=== PATIENT | female | born 1985 | race Caucasian/White ===

== ENCOUNTER → 2017-04-18 20:26 | Outpatient (CLI) | payer OTHER, SELFPAY ==
[2017-04-21 14:38] LABS: HPV Reflexed? NOT INDICATED
== END ==
PROVIDERS: Visit Provider Obstetrics & Gynecology
DX: Z12.4 Encounter for screening for malignant neoplasm of cervix (principal)
CPT/HCPCS: 88175; G0145

== ENCOUNTER → 2017-05-18 15:55 | Outpatient (CLI) | payer OTHER, SELFPAY ==
--- NOTE | 2017-05-18 | IMM_PTH ---
PATIENT: DEEPTHI PHOENIX LOC: [facility] U#:[id number] AGE/SX: 39/F ROOM: RE05/18/[address]: Dr. Venus Avery MD : 1985 BED: DIS: SPEC #: [id number] RECD: 05/22/17 10:47 STATUS: ROXANNE REHodan #: [id number] KIKA: 05/18/17 00:[address]: Venus Avery DEPT: IMMUNOHISTOCHEMISTRY RECD BY: Hayley Nj ENTERED: 05/22/17 10:48 SP TYPE: IMMUNO OTHR DR: Juanita Garcia, SUPERVISOR PURIFICATION-C Tissues: A - Uterine cervix, NOS B - Endocervical Procedures: p16 (initial) KI-67 (add) PHYSICIAN & [place] [id number] SPECIMEN INFORMATION: Tissue Source: A ? Cervical biopsy, B - ECC Clinical Info: LGSIL, mild dysplasia Specimen Number: [id number] A & B CPT code: 36822 x2, 90024 x2 METHODOLOGY: Deparaffinized sections of prefer/formalin-fixed tissue or PAP/DQ stained slides are incubated with monoclonal/polyclonal antibodies/oligonucleotide probes. Localization is made via biotin free immunoperoxidase method. Appropriate controls are performed and reacted as expected. Results on target cell population are indicated in the following table: RESULTS: ANTIBODY / CLONE RESULT Block A P16 (E6H4) positive, focal, patchy Ki-67 (30-9) positive, low Block B P16 (E6H4) positive, rare cells Ki-67 (30-9) positive, rare cells These tests were developed and their performance characteristics determined by [facility]. They may not have been cleared or approved by the U.S. Food and Drug Administration. The FDA has determined that such clearance or approval is not necessary. INTERPRETATION: A. Cervical biopsy: Focal HPV change noted. B. ECC: Focal HPV change suspected. AM:edilma 05/23/17
--- NOTE | 2017-05-18 11:00 | CER_PTH ---
PATIENT: DEEPTHI PHOENIX LOC: [facility] U#:[id number] AGE/SX: 39/F ROOM: RE05/18/[address]: Dr. Venus Avery MD : 1985 BED: DIS: SPEC #: [id number] RECD: 05/18/17 15:32 STATUS: ROXANNE SEMAJ #: [id number] KIKA: 05/18/17 11:[address]: Venus Avery DEPT: SURGICAL PATHOLOGY RECD BY: Edward Aldridge ENTERED: 05/19/17 09:38 SP TYPE: CERV OTHR DR: Juanita Garcia, INJECTOR ASSEMBLER-C Tissues: A - Uterine cervix, NOS B - Endocervical Procedures: Surgery Specimen Level IV HEADER OPERATION: Colposcopy PRE-OP DIAGNOSIS: LMP 2, LSGIL pap POST-OP DIAGNOSIS: Mild dysplasia TISSUE SUBMITTED: A. Cervical biopsy, B. ECC MICROSCOPIC DIAGNOSIS A. Cervix, biopsy: Focal HPV change noted. Squamous metaplasia and mild chronic inflammation. B. Endocervix, curettings: Squamous metaplasia and mild chronic inflammation. Focal HPV change suspected. AM:edilma 05/22/17 COMMENT A & B. Results from immunohistochemistry ([id number]) for surrogate HPV marker (p16) will be reported separately. Case has been reviewed in consultation with Dr. Bernstein who concurs with the above diagnosis. IDC:ZORAN MICROSCOPIC DESCRIPTION Slides are reviewed. GROSS DESCRIPTION A - Received in fixative is one container labeled with the patient's name and designated cervix. The specimen consists of multiple irregular fragments of light wiggins soft tissue that in aggregate measure 0.5 x 0.5 x 0.1 cm. The specimen is totally submitted in one cassette. B - Received in fixative is one container labeled with the patient's name and designated ECC. The specimen consists of multiple fragments of hemorrhagic mucoid tissue that in aggregate measure 2 x 2 x 0.2 cm. The specimen is totally submitted in one cassette. / ZORAN:edilma 05/19/17 TC:3 CPT: 93494 x2
== END ==
PROVIDERS: Family Provider Nurse Practitioner Family; PCP Nurse Practitioner Family; Visit Provider Obstetrics & Gynecology
DX: N87.0 Mild cervical dysplasia (principal)
CPT/HCPCS: 88305; 88341; 88342

== ENCOUNTER → 2017-11-22 14:39 | Outpatient (CLI) | payer OTHER, SELFPAY ==
[2017-11-29 12:14] LABS: HPV Reflexed? NOT INDICATED
== END ==
PROVIDERS: Visit Provider Obstetrics & Gynecology
DX: R87.612 Low grade squamous intraepithelial lesion on cytologic smear of cervix (LGSIL) (principal)
CPT/HCPCS: 88175; G0145

== ENCOUNTER 2018-02-13 11:30 | Outpatient (RCR) | payer OTHER, SELFPAY ==
--- NOTE | 2018-01-23 17:07 | HP.PTEVAL ---
Patient's Visit Information DEEPTHI PHOENIX is a 32 year old F referred to Physical Therapy by Madan Cardozo MD with a diagnosis of R shoulder pain. Date of Evaluation: 01/23/18 Physical Therapist: Aureliano Redman PT, - Visit Plan Frequency: 2-3x /Week Duration: 4 Weeks Plan: R shoulder strengthening (rot cuff), scap stab ex's, UBE, and HEP - Subjective Subjective: Pt reports she has had R shoulder pain for 4 weeks. Pt reports her pain had an insidious onset in nature. Pt is R halnd dom. pt reports no PMHx. NO T or N in R UE. Pt reports she has increased pain reaching across her body. Pt also reports lifting her arm while she is supine for tricep ext increqses her pain. Pt reports she has tried cp/mh/and advil, and nothing helps to decrease her pain. No Dx tests at this time. 1-2/10 at rest, 8/10 when she was exercising tricp extensions. - Pain R shoulder Pain Intensity (Out of 10): 2 Pain Intensity Range: 8 - Objective Neuro: B UE sensation is WNL to light touch. B bicepital reflex= 2/3. ROM: L shoulder flex= 165, abd= 160, ER= 60, IR WNL; R shoulder flex= 150, abd= 130, ER= 65, IR WNL. MMT: R shoulder is grossly 4-/5 and painful with all motions. L shoulder 5/5 throughout. Palpation: Pain on the posterior lateral aspect of R shoulder. No obvious deformity. Special tests: pos salazar faiht sign - Goals Goal 1:: Decrease R shoulder pain x 50% to aid with sleep Goal Time Frame: 2-4 Weeks Goal 2:: Increase R shoulder strength x 1 grade to aid with work requirements Goal Time Frame: 2-4 Weeks Goal 3:: Increawse R shoulder flex and abd x 30 degrees to aid with overhead lifting Goal Time Frame: 2-4 Weeks Goal 4:: I with HEP Goal Time Frame: 2-4 Weeks - Rehabilitation Potential Physical Therapy Diagnosis: R shoulder pain, weakness, and limited ROM secondary to bursitis of R shoulder Rehabilitation Potential: Good - Anticipated Interventions Patient/Client Instruction: Educate patient on: Condition, Plan of Care For the Purpose of:: To improve self management Therapeutic Exercise to Include: Strength training, Endurance training, Flexibilty training, Scapular Strength/Stabilization For the Purpose of:: To decrease pain, To increase ROM, To improve muscle performance and motor function Cryotherapy (ice pack, ice massage): Yes Ultrasound (thermal/non thermal): Yes For the Purpose of:: To decrease pain Thank you for the opportunity to evaluate your patient. For Medicare and Medicare HMO plans, please review the plan of care and approve it. It will need to be FAXED BACK to us at [phone] for Medicare purposes. Please let me know if there are questions or concerns regarding this plan of care. Physician Signature: Date:
--- NOTE | 2018-04-04 08:20 | HP.PT.NRP ---
HP - Discharge Summary (1) - Patient Information DEEPTHI PHOENIX was seen in my office for initial evaluation on 01/23/18. The following Plan of Care was established for this patient: Initial Frequency: 2-3x /Week Initial Duration: 4 Weeks - Anticipated Interventions Patient/Client Instruction: Educate patient on: Condition, Plan of Care For the Purpose of:: To improve self management Therapeutic Exercise to Include: Strength training, Endurance training, Flexibilty training, Scapular Strength/Stabilization For the Purpose of:: To decrease pain, To increase ROM, To improve muscle performance and motor function Cryotherapy (ice pack, ice massage): Yes Ultrasound (thermal/non thermal): Yes For the Purpose of:: To decrease pain This patient was last seen in our office . Pertinent comments regarding their Physical therapy will appear below: Pt was scheduled for PT for her R shoulder pain on the date of 02/20/18, but cancelled that appointment and has not returned through todays date. Pt is therefore discontinued at this time. At this point I will be discontinuing this patient from physical therapy. I would be happy to see this patient again in the future if found appropriate by the physician. Thank you! Aureliano Redman, PT, ATC
== END 2018-02-13 19:00 | disposition home or self-care (01) ==
LOC: PT 11:30
PROVIDERS: Family Provider Nurse Practitioner Family; PCP Nurse Practitioner Family; Referring Provider Family Medicine; Visit Provider Family Medicine
DX: M25.511 Pain in right shoulder (principal)
CPT/HCPCS: 97110; 97161

== ENCOUNTER 2018-02-20 14:15 | Outpatient (RCR) | payer OTHER, SELFPAY ==
--- NOTE | 2017-04-18 13:00 | MASS.EVAL ---
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 She was referred to [facility] for massotherapy evaluation with a diagnosis of scoliosis and chronic upper back pain. She presents today with tension and aching through the neck shoulders and mid back. She attributes the symptoms to her scoliosis and the physical nature of her job. She lists no medications. Goals: Relive tension Her first treatment consisted of a moderate to deep tissue massage to the upper body focusing on the back. The patient has very high tension throughout her upper body. She reponded well to treatment and reported a slight decreasd in muscle tension afterward. I plan on seeing her one time a month or as needed for a total of 10 one hour sessions of massge. Lexi Longoria LMT
--- NOTE | 2017-04-18 13:06 | MASS.EVAL_ITS ---
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 She presents today with tension and aching through the neck shoulders and mid back. She attributes the symptoms to her scoliosis and the physical nature of her job. She lists no medications. Goals: Relive tension Her first treatment consisted of a moderate to deep tissue massage to the upper body focusing on the back. The patient has very high tension throughout her upper body. She reponded well to treatment and reported a slight decreasd in muscle tension afterward. I plan on seeing her one time a month or as needed for a total of 10 one hour sessions of massge. Lexi Longoria LMT
--- NOTE | 2018-03-07 12:47 | MASS.DISCH ---
Massage Therapy Discharge Summary: Discharge Date: 03/07/2018 Belén was seen for a massotherapy evaluation on 04/18/2017 with the diagnosis of scoliosis and upper back pain. She was treated with seven sessions of massage therapy consisting of moderate to deep pressure soft tissue techniques, myofascial release and trigger point compression to her cervical, thoracic, lower back, upper extremities and hips. Belén responded well to the therapy by reporting decreased tension and pain throughout her neck, shoulders, lower back and hips. Her goals for therapy were met throughout the treatment sessions. At this time this patient is being discharged from our care at [facility] facility.
== END 2018-02-20 19:00 | disposition home or self-care (01) ==
LOC: MASS 14:15
PROVIDERS: Family Provider Nurse Practitioner Family; PCP Nurse Practitioner Family; Visit Provider Nurse Practitioner Family
DX: M41.20 Other idiopathic scoliosis, site unspecified (principal); M54.9 Dorsalgia, unspecified; G89.29 Other chronic pain
CPT/HCPCS: 97124

== ENCOUNTER → 2018-02-23 13:50 | Outpatient (CLI) | payer OTHER, SELFPAY ==
--- NOTE | 2018-02-23 13:54 | RAD_ITS ---
STUDY: X-RAY - RIGHT SHOULDER REASON FOR EXAM: Female, 32 years old. Pain. TECHNIQUE: 3 view(s) of the shoulder. COMPARISON: None. FINDINGS: Normal glenohumeral articulation. Normal acromioclavicular joint. Normal acromion. Normal humeral head and visualized proximal humerus. The soft tissue structures are unremarkable. There is no demonstrated fracture. Normal visualized pulmonary apex. There has been extensive previous surgery of the thoracic spine. RAD/Shoulder min 2 Views IMPRESSION: Normal x-ray examination of the shoulder. Electronically Signed: Dean Vo MD at 23:56 EST , Service support ,
== END ==
PROVIDERS: Family Provider Nurse Practitioner Family; PCP Nurse Practitioner Family; Referring Provider Physician Assistant; Visit Provider Physician Assistant
DX: M25.511 Pain in right shoulder (principal)
CPT/HCPCS: 73030

== ENCOUNTER → 2018-06-19 11:30 | Outpatient (CLI) | payer OTHER, SELFPAY ==
[2018-06-21 14:14] LABS: HPV Reflexed? NOT INDICATED
== END ==
PROVIDERS: PCP Nurse Practitioner Family; Visit Provider Obstetrics & Gynecology
DX: Z12.4 Encounter for screening for malignant neoplasm of cervix (principal)
CPT/HCPCS: 88175; G0145

== ENCOUNTER → 2018-07-12 12:31 | Outpatient (CLI) | payer OTHER, SELFPAY ==
--- NOTE | 2018-07-12 12:32 | MRI_ITS ---
STUDY: MRI RIGHT SHOULDER REASON FOR EXAM: Female, 32 years old. Right-sided shoulder pain with movement. TECHNIQUE: Standardized fat and water weighted pulse sequences were obtained in all 3 orthogonal planes. COMPARISON: None. FINDINGS: There is intratendinous edema consistent with a supraspinatus tendinitis. Normal infraspinatus tendon. There is subscapularis tendinosis with tendon thickening, but without a demonstrated tendon tear. Normal teres minor tendon. There is mild muscular atrophy of the supraspinatus muscle. Normal infraspinatus muscle. There is mild muscular atrophy of the subscapularis muscle. Normal teres minor muscle. There is a small volume joint effusion of the glenohumeral joint. Normal humeral head and visualized proximal humerus. Normal biceps labral complex. Normal intracapsular long biceps tendon. Normal labrum. Normal capsulo- ligamentous complex. Normal rotator interval. There is mild osteoarthritis of the acromioclavicular articulation. There is a Type I morphology (flat undersurface). There is minimal fluid distention of the subacromial bursa, consistent with mild subacromial-subdeltoid bursitis. Normal axillary space. There is mild deltoid muscular atrophy. Normal trapezius muscle. MRI/Upper Ext Joint Only(Routine) IMPRESSION: 1. Tendinitis of the supraspinatus tendon and tendinopathy of subscapularis tendon with associated muscular atrophy. 2. Small joint effusion. Electronically Signed: Nimo Talavera MD at 6:55 EDT , Service support ,
== END ==
PROVIDERS: Family Provider Nurse Practitioner Family; PCP Nurse Practitioner Family; Referring Provider Physician Assistant; Visit Provider Physician Assistant
DX: M75.41 Impingement syndrome of right shoulder (principal)
CPT/HCPCS: 73221

== ENCOUNTER 2019-01-11 14:30 | Outpatient (RCR) | payer OTHER, SELFPAY ==
--- NOTE | 2018-04-16 17:08 | MASS.EVAL ---
Massage Therapy Evaluation: INITIAL EVALUATION: DATE: 04/04/18 PT NAME: DEEPTHI PHOENIX : 1985 V#:[id number] REFERRING PHYS: DR. 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 [facility] FOR MASSOTHERAPY EVALUATION BY DR. KWON WITH THE DIAGNOSIS OF SCOLIOSIS. SHE PRESENTS TODAY WITH THE SYMPTOMS OF PAIN IN THE UPPER BACK BETWEEN HER SCAPULA'S. SHE REPORTS HER PAIN 4/10 ON THE PAIN SCALE. THE SYMPTOMS HAVE BEEN PRESENT FOR A FEW YEARS COMMENCED DUE TO HAVING A CELINE PUT IN HER SPINE TO HELP CORRECT THE SCOLIOSIS. DEEPTHI RATES HER OVERALL HEALTH TO BE IN GOOD CONDITION WITH NO LIMITATIONS IN HER DAILY ACTIVITIES. NO MEDICATIONS WERE LISTED AT THIS TIME. OBJECTIVE: THE FIRST TREATMENT CONSISTED OF A DEEP TISSUE, UPPER BODY MASSAGE. I FOCUSED ON CERVICAL AND THORACIC PARASPINALS, UPPER TRAPEZIUM, AND RHOMBOIDS. TRIGGER POINT THERAPY WAS PERFORMED. ASSESSMENT: MUSCLE TENSION WAS VERY HIGH IN THE BEGINNING OF THE MASSAGE. THE MOST TENDERNESS PLACES WITH TRIGGER POINTS WAS THE THORACIC PARASPINALS, UPPER TRAPEZIUM, AND RHOMBOIDS. THE RIGHT SIDE WAS MORE TIGHT AND TENDER THAN THE LEFT SIDE. OVERALL, I FELT THERE WAS A GOOD RELEASE ON THE RIGHT SIDE. THEREFORE, I FEEL THAT DEEPTHI IS A GREAT CANDIDATE FOR MASSOTHERAPY AT THIS TIME. PLAN: THE PLAN OF CARE WAS REVIEWED WITH THE PATIENT. THE PATIENT IS TO BE SEEN ONCE A MONTH OR NEEDED FOR A TOTAL OF 10 VISITS FOR ONE HOUR SESSIONS OF MASSOTHERAPY.
--- NOTE | 2018-04-16 17:15 | MASS.EVAL_ITS ---
Massage Therapy Evaluation: INITIAL EVALUATION: DATE: 04/04/18 PT NAME: DEEPTHI PHOENIX : 1985 V#:[id number] REFERRING PHYS: DR. 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 SHE WAS REFERRED TO [facility] FOR MASSOTHERAPY EVALUATION BY DR. KWON WITH THE DIAGNOSIS OF SCOLIOSIS. SHE PRESENTS TODAY WITH THE SYMPTOMS OF PAIN IN THE UPPER BACK BETWEEN HER SCAPULA'S. SHE REPORTS HER PAIN 4/10 ON THE PAIN SCALE. THE SYMPTOMS HAVE BEEN PRESENT FOR A FEW YEARS COMMENCED DUE TO HAVING A CELINE PUT IN HER SPINE TO HELP CORRECT THE SCOLIOSIS. DEEPTHI RATES HER OVERALL HEALTH TO BE IN GOOD CONDITION WITH NO LIMITATIONS IN HER DAILY ACTIVITIES. NO MEDICATIONS WERE LISTED AT THIS TIME. OBJECTIVE: THE FIRST TREATMENT CONSISTED OF A DEEP TISSUE, UPPER BODY MASSAGE. I FOCUSED ON CERVICAL AND THORACIC PARASPINALS, UPPER TRAPEZIUM, AND RHOMBOIDS. TRIGGER POINT THERAPY WAS PERFORMED. ASSESSMENT: MUSCLE TENSION WAS VERY HIGH IN THE BEGINNING OF THE MASSAGE. THE MOST TENDERNESS PLACES WITH TRIGGER POINTS WAS THE THORACIC PARASPINALS, UPPER TRAPEZIUM, AND RHOMBOIDS. THE RIGHT SIDE WAS MORE TIGHT AND TENDER THAN THE LEFT SIDE. OVERALL, I FELT THERE WAS A GOOD RELEASE ON THE RIGHT SIDE. THEREFORE, I FEEL THAT DEEPTHI IS A GREAT CANDIDATE FOR MASSOTHERAPY AT THIS TIME. PLAN: THE PLAN OF CARE WAS REVIEWED WITH THE PATIENT. THE PATIENT IS TO BE SEEN ONCE A MONTH OR NEEDED FOR A TOTAL OF 10 VISITS FOR ONE HOUR SESSIONS OF MASSOTHERAPY.
--- NOTE | 2019-01-24 10:07 | DS.PCM_ITS ---
Massage Therapy Discharge Summary: DATE: 01/24/19 V#:[id number] PT NAME: DEEPTHI PHOENIX : 1985 REF PHYS:DR. KWON THE PATIENT WAS SEEN FOR A MASSOTHERAPY EVALUATION ON 03/25/18 WITH A DIAGNOSIS OF SCOLIOSIS. THE PATIENT WAS TREATED WITH 10 SESSIONS OF MASSAGE CONSISTING OF DEEP TISSUE UPPER BODY MASSAGE. HER GOALS FOR TREATMENT WERE MET SHE REPORTED KEEPING THE PAIN LEVEL DOWN AND NOT MUCH TENSION IN THE UPPER BODY THROUGHOUT HER THERAPY. AT THIS TIME I AM DISCHARGING THE PATIENT FROM OUR CARE AT THE [facility].
== END 2019-01-11 19:00 | disposition home or self-care (01) ==
LOC: MASS 14:30
PROVIDERS: Family Provider Nurse Practitioner Family; PCP Nurse Practitioner Family; Visit Provider Nurse Practitioner Family
DX: M41.20 Other idiopathic scoliosis, site unspecified (principal); M54.9 Dorsalgia, unspecified; G89.29 Other chronic pain
CPT/HCPCS: 97124

== ENCOUNTER 2019-01-17 11:30 | Outpatient (RCR) | payer OTHER, SELFPAY ==
[2018-12-12 09:55] VITALS: BMI 35.6
--- NOTE | 2018-12-21 12:12 | HP.PTEVAL_ITS ---
Patient's Visit Information BELÉN PHOENIX is a 33 year old F referred to Physical Therapy by BRIJESH Tolentino with a diagnosis of Right Knee Pain. Date of Evaluation: 12/21/18 Physical Therapist: Belén Castelan DPT - Visit Plan Frequency: 2x /Week Duration: 4 Weeks Plan: Right Knee Pain with deep knee bending- focus on LE and core strength/stabilization - Subjective Findings: Right knee pain for months- insidous onset- gradually getting worse. It hurts to bend- can squat down but when she gets to end range the pain is located on the outside and then on the back. Painful with more resistance. No problems twisting. As long as she does nto squat down she is fine. 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 No radiating pain. Worst: 10/10 happens then goes away. Hard to get down on the ground and can't get back up. Best: 0/10 most of the time. Describes the pain as sharp/shooting. No N/T in the LE. Has not had back or hip problems. Wears HOKA's to work- with no inserts. No x-ray or MRI- no injection. Feels that this limits her by 50%. PMHx: scoliosis with rods, shoulder pain. Meds: none. Before her knee happens she was doing some classes here but not anymore due to pain. Sleep: not disturbed. - Objective Posture: FH, RS does correct with VC's. Gait: no deviation noted. Squat: weight shift and reports pain at end range- is unable to get back up without A. HR/TR: able. SLS: 30 sec with increased hip drop. ROM: 0-130 degrees no pain. Palpation: tender along lateral joint line and posterior knee. Strength: Core: fair, Hip: 4/5 throughout, Knee: 4+/5, Ankle: 5/5. Flex: HS: moderate, Gastroc: moderate. Special Test: Hollie: negative - Goals Goal 1:: Patient will be I with HEP and progression Goal Time Frame: 4-6 Weeks Goal 2:: Patient will squat with good technique and no pain. Goal Time Frame: 4-6 Weeks Goal 3:: Patient will report 0/10 pain for 1 week Goal Time Frame: 4-6 Weeks Goal 4:: Patient will maintain proper posture t/o tx session to demo increased core s/s Goal Time Frame: 4-6 Weeks - Rehabilitation Potential Physical Therapy Diagnosis: Patient presents with hypomobility- she has decreased strength, flex and muscular endurance leading to increased pain with squatting and work related tasks. Rehabilitation Potential: Good - Anticipated Interventions Patient/Client Instruction: Educate patient on: Benefits of Fitness Program Therapeutic Exercise to Include: Strength training, Endurance training, Balance training, Agility training, Body mechanics, Postural training, Flexibilty training, Gait and locomotor training, Passive ROM, Active ROM, Dynamic Lumbar Stabilization, Scapular Strength/Stabilization For the Purpose of:: To improve muscle performance and motor function TENS: Yes Cryotherapy (ice pack, ice massage): Yes Thermo therapy (hot pack): Yes Ultrasound (thermal/non thermal): Yes For the Purpose of:: To decrease swelling/inflammation Thank you for the opportunity to evaluate your patient. For Medicare and Medicare HMO plans, please review the plan of care and approve it. It will need to be FAXED BACK to us at [phone] for Medicare purposes. For Medicare only, by signing this I certify the plan of care. Please let me know if there are questions or concerns regarding this plan of care. Physician Signature: Date:
--- NOTE | 2019-01-17 13:14 | HP.PTDCSUM_ITS ---
HP - PT D/C Summary It has been my pleasure to treat BELÉN PHOENIX under orders from Toño Herrera NP- C, for the diagnosis of Right Knee Pain for a total of 8 visit(s). Discharge Date: Please see the following information for a summary of their discharge status. - Subjective Subjective: Progressively getting better, but not 100%. Still painful w/ deep squat but can do it. - Pain R knee Pain Intensity (Out of 10): 1 - Overall Improvement % Improvement: 75 - Objective Objective/Function: Posture: FH, RS does correct with VC's. Gait: no deviation noted. Squat: weight shift and reports pain at end range - can return to standing I. HR/TR: able. SLS: 30 sec with increased hip drop. ROM: 0-130 degrees no pain. Palpation: tender along lateral joint line and posterior knee. Strength: Core: fair, Hip: 4/5 throughout, Knee: 4+/5, Ankle: 5/5. Flex: HS: moderate, Gastroc: moderate. Special Test: Hollie: negative - Goals Goal 1:: Patient will be I with HEP and progression Goal Progress: Goal Met Goal 2:: Patient will squat with good technique and no pain. Goal Progress: Progressing Goal 3:: Patient will report 0/10 pain for 1 week Goal Progress: Progressing Goal 4:: Patient will maintain proper posture t/o tx session to demo increased core s/s Goal Progress: Progressing - Plan Plan: D/C to I HEP. Follow-up as needed - D/C Information If there are questions or concerns regarding this patient's physical therapy, please feel free to call me at [phone]. Thank you for the referral of this patient. Sincerely, Belén Castelan DPT
== END 2019-01-17 14:20 | disposition home or self-care (01) ==
LOC: PT 11:30
PROVIDERS: Family Provider Internal Medicine; PCP Internal Medicine; Referring Provider Nurse Practitioner Family; Visit Provider Nurse Practitioner Family
DX: M25.561 Pain in right knee (principal); G89.29 Other chronic pain
CPT/HCPCS: 97110; 97161; 97164

== ENCOUNTER → 2019-08-09 13:43 | Outpatient (CLI) | payer BC, SELFPAY ==
[2018-12-12 09:55] VITALS: BMI 35.6
[2019-08-14 06:46] LABS: HPV APTIMA, High Risk Negative (Negative)
== END ==
PROVIDERS: PCP Internal Medicine; Visit Provider Obstetrics & Gynecology
DX: Z12.4 Encounter for screening for malignant neoplasm of cervix (principal)
CPT/HCPCS: 87624; 88175; G0145

== ENCOUNTER → 2019-10-18 14:24 | Outpatient (CLI) | payer BC, SELFPAY ==
[2019-10-18 13:46] VITALS: BMI 35.6
[2019-10-18 16:59] LABS: Absolute Lymphocyte Count 2.48 X10^3/uL (0.83-4.51); Absolute Neutrophil Count 4.9 X10^3/uL (2.0-7.7); Basophil# 0.04 X10^3/uL; Basophil% 0.5 % (0-1); Eosinophil# 0.15 X10^3/uL; Eosinophils% 1.8 % (0-5); Hematocrit 42.3 % (37-47); Hemoglobin 13.6 g/dL (12.0-15.0); Lymphocyte # 2.48 X10^3/ul (4.0); Lymphocyte % 30.5 % (19-41); Mean Corp Hgb Conc 32.2 g/dL (32-36); Mean Corpuscular Hgb 31.5 pg (27.0-32.0); Mean Corpuscular Volume 97.9 fL (81-99); Mean Platelet Vol. 9.1 fl (6.2-12.0); Monocyte# 0.53 X10^3/uL; Monocyte% 6.5 % (0-10); NRBC Flagged by Analyzer 0 % (0-5); Neutrophil % 60.3 % (47-70); Platelet Count 330 K/mm3 (150-450); RBC Distribution Width CV 13.6 % (11.6-14.6); RBC Distribution Width SD 48.8 fl (35.1-43.9); Red Blood Count 4.32 M/mm3 (4.2-5.4); White Blood Count 8.1 K/mm3 (4.4-11.0)
[2019-10-18 17:22] LABS: ALB/GLOB Ratio 1.1 RATIO (0.9-2.4); AST(SGOT) 9 U/L (15-37); Alanine Aminotransfer ALT/SGPT 17 U/L (13-56); Albumin, Serum 3.7 g/dL (3.2-5.0); Alkaline Phosphatase 52 U/L (45-117); Anion Gap 4 (5-15); BUN 12 mg/dL (7-18); BUN/Creat Ratio 13.6 RATIO (10-20); Calcium,Total 8.8 mg/dL (8.5-10.1); Chloride 108 mmol/L (98-107); Cholesterol 191 mg/dL (200); Creatinine, Serum 0.88 mg/dL (0.55-1.02); EST Glomerular Filtration Rate 77 mL/min (>60); Est Glom Filt Rate - Afr Amer 93 mL/min (>60); Globulin 3.4 g/dL (2.2-4.2); Glucose 98 mg/dL (74-106); High Density Lipoprotein 52 mg/dL; Magnesium 2.2 mg/dL (1.6-2.6); Potassium 4.1 mmol/L (3.5-5.1); Protein, Total 7.1 g/dL (6.4-8.2); Sodium Level 141 mmol/L (136-145); Thyroid Stim Hormone (TSH) 1.45 uIU/mL (0.358-3.74); Triglycerides 113 mg/dL; Very Low Density Lipoprotein 23 mg/dL (5-40)
[2019-10-18 18:07] LABS: Hemoglobin A1c 5.3 % (3.8-5.6)
== END ==
PROVIDERS: PCP Internal Medicine; Referring Provider Nurse Practitioner Family; Visit Provider Nurse Practitioner Family
DX: R00.2 Palpitations (principal); I34.1 Nonrheumatic mitral (valve) prolapse; E66.9 Obesity, unspecified
CPT/HCPCS: 36415; 80053; 80061; 83036; 83735; 84443; 85025

== ENCOUNTER 2021-06-11 17:45 | Outpatient (CLI) | payer BC, SELFPAY | END 2021-06-11 23:59 | disposition home or self-care (01) | PROVIDERS: PCP Internal Medicine; Visit Provider Registered Nurse | DX: Z20.822 Contact with and (suspected) exposure to COVID-19 (principal) | CPT/HCPCS: 87635; U0003; U0005 ==

== ENCOUNTER → 2022-01-20 | Outpatient (CLI) | payer BC, SELFPAY ==
[2022-01-20 15:45] LABS: Hemoglobin 13.5 g/dL (12.0-15.0); Mean Corp Hgb Conc 32.9 g/dL (32-36); Mean Corpuscular Hgb 32.3 pg (27.0-32.0); Mean Corpuscular Volume 98.1 fL (81-99); Mean Platelet Vol. 8.8 fl (6.2-12.0); Platelet Count 349 K/mm3 (150-450); RBC Distribution Width SD 54.1 fl (35.1-43.9); Red Blood Count 4.18 M/mm3 (4.2-5.4); White Blood Count 11.8 K/mm3 (4.4-11.0)
[2022-01-20 16:26] LABS: Vitamin B12 542 pg/mL (211-911)
[2022-01-20 16:33] LABS: AST(SGOT) 11 U/L (15-37); Alanine Aminotransfer ALT/SGPT 18 U/L (13-56); Albumin, Serum 3.7 g/dL (3.2-5.0); Alkaline Phosphatase 50 U/L (45-117); Anion Gap 7 (5-15); BUN 18 mg/dL (7-18); Calcium,Total 9.3 mg/dL (8.5-10.1); Chloride 105 mmol/L (98-107); Creatinine, Serum 0.82 mg/dL (0.55-1.02); EST Glomerular Filtration Rate 83 mL/min (>60); Est Glom Filt Rate - Afr Amer 101 mL/min (>60); Globulin 3.6 g/dL (2.2-4.2); Glucose 74 mg/dL (74-106); Potassium 3.9 mmol/L (3.5-5.1); Protein, Total 7.3 g/dL (6.4-8.2); Sodium Level 139 mmol/L (136-145); Thyroid Stim Hormone (TSH) 1.56 uIU/mL (0.358-3.74)
[2022-01-20 18:42] LABS: Ferritin 56 ng/mL (8-252); Iron 56 ug/dL (50-170); Iron Binding Capacity,Total 308 ug/dL (250-450); PERCENT IRON SATURATION 18.2 % (15.0-55.0)
== END | disposition home or self-care (01) ==
LOC: MFPLAB 13:56
PROVIDERS: PCP Internal Medicine; Referring Provider Internal Medicine; Visit Provider Nurse Practitioner Family
DX: E56.9 Vitamin deficiency, unspecified (principal); L65.9 Nonscarring hair loss, unspecified; D64.9 Anemia, unspecified
CPT/HCPCS: 36415; 80053; 82306; 82607; 82728; 83540; 83550; 84443; 85027

== ENCOUNTER → 2023-11-27 | Outpatient (CLI) | payer BC, SELFPAY ==
--- NOTE | 2023-11-27 09:58 | US_ITS ---
PROCEDURE: ULTRASOUND OF THE FEMALE PELVIS - COMPLETE REASON FOR EXAM: Female, 38 years old. Pelvic pain TECHNIQUE: Transabdominal and Transvaginal TECHNICAL QUALITY: Adequate. COMPARISON: None. FINDINGS: The uterus is anteverted and is in a midline position. The uterus measures 8.2 x 4.3 x 4.1 cm. There is no demonstrated myometrial mass. Fundal IUD noted in the endometrial cavity. The endometrium measures 5.5 mm in thickness, and is hyperechoic. There is no demonstrated endometrial mass. Normal uterine cervix. The right ovary is visualized. The right ovary measures 2.6 x 3.2 x 1.9 cm. There is no right ovarian cyst or ovarian mass. There is no visualized right adnexal mass or complex lesion. The left ovary is visualized. The left ovary measures 6.3 x 6.0 x 4.4 cm. A large avascular debris and old hemorrhage field left ovarian cyst is present measuring 5.7 x 5.3 x 4.0 cm. There is no visualized left adnexal mass or complex lesion. Normal color vascular flow and Doppler signal is demonstrated in both ovaries. There is minimal fluid in the cul-de-sac. US/Transvaginal Non- IMPRESSION: 1. Large 5.7 x 5.3 x 4.0 cm left ovarian hemorrhagic cyst. Small amount of free fluid could be physiologic or related to inflammation associated with the hemorrhagic cyst. There is no demonstrated hemoperitoneum to indicate rupture of the hemorrhagic cyst. This can be followed up within 3 months. This is a benign process Electronically Signed: Larry Varma MD at 11:21 EDT ,
== END | disposition home or self-care (01) ==
LOC: US 09:56
PROVIDERS: PCP Nurse Practitioner Family; Referring Provider Nurse Practitioner Family; Visit Provider Nurse Practitioner Family
DX: R10.2 Pelvic and perineal pain (principal)
CPT/HCPCS: 76830

== ENCOUNTER → 2024-12-17 | Outpatient (CLI) | payer BC, SELFPAY ==
--- OUTSIDE RECORDS SUMMARY | 2024-12-05 12:25 | XMS RPT_ITS ---
Author Name Auto Generated Organization OHIP Care Team Providers Care Certified Nursing Assistant Instructor Name Role Phone PEDRO GILBERT Referring Unavailable PEDRO GILBERT Referring Unavailable PEDRO GILBERT Attending Unavailable PEDRO GILBERT Referring Unavailable PEDRO GILBERT Attending Unavailable PROBLEMS DATE TYPE CONDITION / CODE ATTENDING STATUS [facility] 12/05/2024 Active Encounter for sc reening mammogram for breast cancer / Z12.31(ICD-10) NA Active [facility] 12/02/2024 Active Encounter for gynecological examination (general) (routine) without abnormal findings / Z01.419(ICD-10) PEDRO GILBERT Active [facility] PROCEDURES No Procedure Records Found RESULTS PROGRESS Observed: 12/05/2024 12:50 PM Status: COMPLETED Source: [facility] HNO ID: [id number] Author: LELA MIRELES RT(R) Service: ? Author Type: Technologist Type: Progress Notes Filed: 12/05/2024 13:17 Note Text: Radiology Service Progress Note PATIENT NAME: Belén Phoenix DATE OF SERVICE: December 05, 2024 TIME: 1:17 PM PATIENT IDENTITY VERIFICATION COMPLETED USING TWO (2) IDENTIFIERS: Name and Date of confirmed by patient verbally. FALL SCREENING: Has the patient had 2 falls in the last year or 1 fall with injury or currently using an Ambulatory Assistive Device (Walker, Cane, Wheelchair, Crutches, etc.)? No PATIENT GENDER DATA: Assigned female at . status: : No status: NO. PATIENT RELEVANT IMPLANT DATA REVIEWED: Not Applicable PATIENT PRESENTS WITH AN IMPLANTABLE OR ATTACHED BEAR KEEPER: No RADIOLOGY DEPARTMENT: Mammography PERIPHERAL IV DATA: Not applicable SIGNED BY: RT Alisia(R) December 05, 2024 1:17 PM SURY SCREENING W GINNA Observed: 12:49 PM Status: F Source: [facility] * * *Final Report* * * DATE OF EXAM: Dec 05 2024 12:49PM [id number] [id number] - SURY SCREENING W GINNA / PROCEDURE REASON: Encounter for screening mammogram for breast cancer * * * * Physician Interpretation * * * * RESULT: [address] [address] [place] [address] #[id number] - SURY SCREENING W GINNA HISTORY: 39 year-old patient presents for screening. Patient is asymptomatic in both breasts. Patient states no personal history of breast cancer. COMPARISON STUDIES: The present examination has been compared to a prior imaging study dated 02/07/2024 (mammogram). MAMMOGRAM TECHNIQUE: The study was acquired using full field digital technology and interpreted from soft copy. Digital Breast Tomosynthesis (DBT) images were obtained and used to assist in the interpretation of this examination. MAMMOGRAM FINDINGS: The breasts are heterogeneously dense, which may obscure small masses. There are bilateral silicone implants, which may obscure the breast parenchyma, limiting visualization. No suspicious masses, calcifications or other abnormalities are seen in either breast. There are no significant interval changes. IMPRESSION: There is no mammographic evidence of malignancy in either breast. Routine screening mammogram is recommended. Annual mammogram will be due in 1 year. BI-RADS Category 1: Negative RISK: Based on the Tyrer-Cuzick (TC) risk assessment model, this patient has a 12.2% lifetime risk of developing breast cancer, meaning they are at average risk for developing breast cancer. However, this is only an estimate based on available history provided on the patient's questionnaire. We encourage all patients to talk with their providers about these results, further recommendations for managing breast health, and appropriate supplemental screening options if the patient has dense breast tissue. Interpreting Radiologist: Jennifer Baugh M.D. Electronically signed on: 12/08/2024 Consumer Relations Specialist: KERRY Transcribe Date/Time: Dec 05 2024 12:33P Dictated by: JENNIFER BAUGH MD This examination was interpreted and the report reviewed and electronically signed by: JENNIFER BAUGH MD on Dec 08 2024 9:47AM EST [id number] PROGRESS Observed: 12/02/2024 9:18 AM Status: COMPLETED Source: [facility] ID: [id number] Author: PEDRO GILBERT MD Service: ? Author Type: Physician Type: Progress Notes Filed: 12/02/2024 10:35 Note Text: Rotor Plate Washer offered: Patient accepts, visit chaperoned by Yamilet ArreagaJaison Melissa is a 39 year old who presents for an annual gynecologic exam without complaints. 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 Menstrual Tracking History Flowsheet Row Office Visit from 12/02/2024 in OB/Gynecology Period Cycle (Days) 27 Period Duration (Days) 2 Menstrual Flow Light PAST MEDICAL HISTORY Diagnosis Date Paresthesia 08/24/2016 Scoliosis (and kyphoscoliosis), idiopathic Vision disturbance 08/24/2016 Echo, MRI r/o CVA PAST SURGICAL HISTORY Procedure Laterality Date PAST SURGICAL HISTORY OF Spinal fusion with rods for Scoliosis PAST SURGICAL HISTORY OF Right breast implant due to assymetry PAST SURGICAL HISTORY OF [place] tooth extraction x 4 FAMILY HISTORY Problem Relation Age of Onset None Mother None Father Diabetes Maternal Grandmother Hypertension Maternal Grandmother Coronary Artery Disease Maternal Grandmother Stroke Maternal Grandmother Coronary Artery Disease Paternal Grandfather Diabetes Paternal Grandfather Hypertension Paternal Grandfather SOCIAL HISTORY Social History Tobacco Use Smoking status: Never Smokeless tobacco: Never Vaping Use Vaping status: Never Used Substance Use Topics Alcohol use: Yes Alcohol/week: 2.0 standard drinks of alcohol Types: 1 Glasses of Wine (5oz), 1 Cans of Beer (12oz) per week Drug use: No REVIEW OF SYSTEMS Abdomen: No abdominal pain, nausea, vomiting, diarrhea, or constipation. No bloating, early satiety, indigestion, or increased flatulence. Bladder: No dysuria, gross hematuria, urinary frequency, urinary urgency, or incontinence. Breast: No breast lumps, nipple d/c, overlying skin changes, redness or skin retraction. Allergies and current medication updated:Yes SENSITIVE EXAM: The sensitive examination was discussed with the Patient or Patient's Authorized Medical Social Consultant. As applicable, any other physician, advance practice provider, medical student, or other health professional student that will be observing or involved in the sensitive examination for educational or training purposes was discussed with the Patient or Authorized Medical Social Consultant. The Patient or Authorized Medical Social Consultant has agreed to proceed with the sensitive examination. (Sensitive examination includes inspection and/or palpation of the breasts, pelvis, prostate and anorectal regions). EXAM: LMP 11/19/2024 GENERAL: pleasant, female in no apparent distress HEENT: Normocephalic, atraumatic, mucus membranes moist, and no lesions NECK: Supple, full range of motion, no adenopathy, and thyroid normal DERMATOLOGY: Normal, without lesions, non-icteric, and non-hirsute BREAST: soft, non-tender, symmetric, no dominant mass, normal nipple-areolar complex, no lymphadenopathy, and no nipple discharge. Noting implants and surgical scars CHEST: Normal inspiratory effort ABDOMEN: soft, non-tender, and no masses PELVIC: external genitalia normal, normal Bartholin's glands, urethra, [place]'s glands, no vulvar lesions, no cervical lesions, good vaginal support, physiologic discharge present, normal appearing perineal body and perianal region BIMANUAL: uterus normal size, shape and consistency, no adnexal masses, and non-tender RECTOVAGINAL: rectovaginal exam negative for any masses or nodularity. NEURO: alert and oriented x3,exam grossly non-focal EXTREMITIES: normal ASSESSMENT/PLAN: 1) Health maintenance: mammogram 2) Contraception: IUD. Contraceptive options reviewed and information provided. 3) STD screening: Declined STI check. 4) Follow up one year or sooner as needed Pedro Gilbert MD CNOV Observed: 12/02/2024 9:10 AM Status: COMPLETED Source: [facility] Office Visit (OBGYWM) BELÉN PHOENIX ([id number]) 1985 F Date Time Provider Department 12/02/24 9:10 AM PEDRO GILBERT During your visit today, we recorded the following information about you: Blood pressure Weight Height Last Period 122/78 83.5 kg 1.638 m 11/19/24 Pedro Gilbert MD 12/02/2024 10:35 AM Signed Rotor Plate Washer offered: Patient accepts, visit chaperoned by Yamilet Arreaga. Belén is a 39 year old who presents for an annual gynecologic exam without complaints. 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 Menstrual Tracking History Flowsheet Row Office Visit from 12/02/2024 in OB/Gynecology Period Cycle (Days) 27 Period Duration (Days) 2 Menstrual Flow Light PAST MEDICAL HISTORY Diagnosis Date Paresthesia 08/24/2016 Scoliosis (and kyphoscoliosis), idiopathic Vision disturbance 08/24/2016 Echo, MRI r/o CVA PAST SURGICAL HISTORY Procedure Laterality Date PAST SURGICAL HISTORY OF Spinal fusion with rods for Scoliosis PAST SURGICAL HISTORY OF Right breast implant due to assymetry PAST SURGICAL HISTORY OF [place] tooth extraction x 4 FAMILY HISTORY Problem Relation Age of Onset None Mother None Father Diabetes Maternal Grandmother Hypertension Maternal Grandmother Coronary Artery Disease Maternal Grandmother Stroke Maternal Grandmother Coronary Artery Disease Paternal Grandfather Diabetes Paternal Grandfather Hypertension Paternal Grandfather SOCIAL HISTORY Social History Tobacco Use Smoking status: Never Smokeless tobacco: Never Vaping Use Vaping status: Never Used Substance Use Topics Alcohol use: Yes Alcohol/week: 2.0 standard drinks of alcohol Types: 1 Glasses of Wine (5oz), 1 Cans of Beer (12oz) per week Drug use: No REVIEW OF SYSTEMS Abdomen: No abdominal pain, nausea, vomiting, diarrhea, or constipation. No bloating, early satiety, indigestion, or increased flatulence. Bladder: No dysuria, gross hematuria, urinary frequency, urinary urgency, or incontinence. Breast: No breast lumps, nipple d/c, overlying skin changes, redness or skin retraction. Allergies and current medication updated:Yes SENSITIVE EXAM: The sensitive examination was discussed with the Patient or Patient's Authorized Medical Social Consultant. As applicable, any other physician, advance practice provider, medical student, or other health professional student that will be observing or involved in the sensitive examination for educational or training purposes was discussed with the Patient or Authorized Medical Social Consultant. The Patient or Authorized Medical Social Consultant has agreed to proceed with the sensitive examination. (Sensitive examination includes inspection and/or palpation of the breasts, pelvis, prostate and anorectal regions). EXAM: LMP 11/19/2024 GENERAL: pleasant, female in no apparent distress HEENT: Normocephalic, atraumatic, mucus membranes moist, and no lesions NECK: Supple, full range of motion, no adenopathy, and thyroid normal DERMATOLOGY: Normal, without lesions, non-icteric, and non-hirsute BREAST: soft, non-tender, symmetric, no dominant mass, normal nipple-areolar complex, no lymphadenopathy, and no nipple discharge. Noting implants and surgical scars CHEST: Normal inspiratory effort ABDOMEN: soft, non-tender, and no masses PELVIC: external genitalia normal, normal Bartholin's glands, urethra, [place]'s glands, no vulvar lesions, no cervical lesions, good vaginal support, physiologic discharge present, normal appearing perineal body and perianal region BIMANUAL: uterus normal size, shape and consistency, no adnexal masses, and non-tender RECTOVAGINAL: rectovaginal exam negative for any masses or nodularity. NEURO: alert and oriented x3,exam grossly non-focal EXTREMITIES: normal ASSESSMENT/PLAN: 1) Health maintenance: mammogram 2) Contraception: IUD. Contraceptive options reviewed and information provided. 3) STD screening: Declined STI check. 4) Follow up one year or sooner as needed Pedro Gilbert MD Referring Provider: PEDRO GILBERT [[id number]] Allergies As of Date: 12/02/2024 Noted Allergy Reaction PENICILLINS 12/20/2004 4 - Hives Date Reviewed: 12/02/2024 Reviewed by: Pedro Gilbert MD - Fully Assessed Reason for Visit: [facility] [[id number]] Primary Visit Diagnosis:Encounter for gynecological examination (general) (routine) without abnormal findings [Z01.419] Other Visit Diagnosis:Encounter for screening mammogram for breast cancer [Z12.31] Order(s):[facility] SCREENING W GINNA [[id number]] Order #: [id number] FUTURE Prescriptions as of 12/02/2024 - levonorgestrel (MIRENA) 21 mcg/24 hr (8 yrs) 52 mg IUD 1 Each by INTRAUTERINE route one time only. - MULTIVITAMIN ORAL Take by mouth. - Lactobacillus acidophilus (PROBIOTIC ORAL) Take by mouth. - ALPRAZolam (XANAX) 0.5 mg tablet Take 0.25 mg by mouth as needed. Only when she fly's which is every couple months - predniSONE (DELTASONE) 10 mg tablet Take 40 mg x 3 days, 20 mg x 3 days, 10 mg x 3 days. Take with food, once daily - cyclobenzaprine (FLEXERIL) 10 mg tablet Take 1 tablet by mouth twice daily as needed for Muscle Spasm. - Norethindrone Acet-Ethinyl Est 1.5-30 mg-mcg Take by mouth as directed. Problem List As Of Date 12/02/2024 Noted Resolved IDIOPATHIC SCOLIOSIS [M41.20] 08/09/2005 Chest pain, atypical [R07.89] 05/24/2013 PVCs (premature ventricular contractions) [I49.*05/24/2013 Chronic upper back pain [M54.9, G89.29] 03/22/2016 Disposition: Return in 1 year (on 12/02/2025) for Annual Exam. Follow-up and Disposition History for Encounter Date Provider Department Center 12/02/2024 [id number] GILBERT Ernesto Yong Encounter Status:Closed by PEDRO GILBERT on 12/02/24 [facility] SCREENING W GINNA Observed: 11:28 AM Status: F Source: [facility] * * *Final Report* * * DATE OF EXAM: Feb 07 2024 11:28AM WRW [id number] - SURY SCREENING W GINNA / PROCEDURE REASON: Encounter for screening mammogram for breast cancer * * * * Physician Interpretation * * * * RESULT: [place] [address] #[id number] - SURY SCREENING W GINNA HISTORY: Patient is 38 years old and is seen for screening and is asymptomatic in both breasts. Patient states no personal history of breast cancer. Patient states no personal history of other cancers. COMPARISON STUDIES: This is a baseline study. MAMMOGRAM TECHNIQUE: The study was acquired using full field digital technology and interpreted from soft copy. Digital Breast Tomosynthesis (DBT) images were obtained and used to assist in the interpretation of this examination. Computer-aided detection was utilized by the radiologist in the interpretation of this examination. MAMMOGRAM FINDINGS: The breasts are heterogeneously dense, which may obscure small masses. There are bilateral silicone implants . Breast implants may obscure the breast parenchyma, limiting visualization. No suspicious masses, calcifications or other abnormalities are seen in either breast. The implant appear smooth in contour with no evidence of rupture or leak. IMPRESSION: There are no suspicious mammographic findings in either breast. Routine screening mammogram is recommended. Annual mammogram will be due in 1 year. BI-RADS Category 1: Negative RISK: Based on the Tyrer-Cuzick (TC) risk assessment model, this patient has a 12.2% lifetime risk of developing breast cancer, meaning they are at average risk for developing breast cancer. However, this is only an estimate based on available history provided on the patient's questionnaire. We encourage all patients to talk with their providers about these results, further recommendations for managing breast health, and appropriate supplemental screening options if the patient has dense breast tissue. Interpreting Radiologist: Pedro العلي M.D. Electronically signed on: 02/10/2024 Consumer Relations Specialist: KERRY Transcribe Date/Time: Feb 07 2024 11:14A Dictated by: PEDRO العلي MD This examination was interpreted and the report reviewed and electronically signed by: PEDRO العلي MD on Feb 10 2024 12:47AM EST [id number] PROGRESS Observed: 02/07/2024 11:10 AM Status: COMPLETED Source: [facility] HNO ID: [id number] Author: CALEB JOHN Mammo Tech Service: ? Author Type: Gang Ripsaw Operator Type: Progress Notes Filed: 02/07/2024 12:55 Note Text: Radiology Service Progress Note PATIENT NAME: Belén Phoenix DATE OF SERVICE: February 07, 2024 TIME: 12:55 PM PATIENT IDENTITY VERIFICATION COMPLETED USING TWO (2) IDENTIFIERS: Name and Date of confirmed by patient verbally. FALL SCREENING: Has the patient had 2 falls in the last year or 1 fall with injury or currently using an Ambulatory Assistive Device (Walker, Cane, Wheelchair, Crutches, etc.)? No PATIENT GENDER DATA: Female. status: : No status: NO. PATIENT RELEVANT IMPLANT DATA REVIEWED: Not Applicable PATIENT PRESENTS WITH AN IMPLANTABLE OR ATTACHED BEAR KEEPER: No RADIOLOGY DEPARTMENT: Mammography PERIPHERAL IV DATA: Not applicable SIGNED BY: Ankit Lizama February 07, 2024 12:55 PM ALLERGIES DATE TYPE / CODE NAME / CODE REACTION SEVERITY SOURCE 12/20/2004 Drug Class/[id number]([facility] ED [facility]) PENICILLINS HIVES [facility] ENCOUNTERS ADMIT/DISCHARGE ACCOUNT NUMBER ADMITTING ENCOUNTER CLASS LOC ATION SOURCE 12/05/2024 [id number] Ambulatory [facility] 12/02/2024/ 5 [id number] Ambulatory [facility] 02/07/2024/ 4 [id number] [facility] PAYERS ENCOUNTER GUARANTOR PAYER SUBSCRIBER SOURCE 12/05/2024 Primary Insurance:[employer] [facility] Number: [id number] Date:[id number] Name:Denzel GANTSHABNAMDOB: [id number] [place] [address] [facility] 12/02/2024 Primary Insurance:BLUE ACCESS PPOPolicy Number: [id number] Date:[id number] Name:Denzel GÓMEZ: [id number] [place] [address] [facility] 02/07/2024 Primary Insurance:BLUE ACCESS PPOPolicy Number: [id number] Date:[id number] Name:Denzel GÓMEZ: [id number] [place] [address] [facility]
[2024-12-17 10:21] LABS: Hematocrit 42.5 % (37-47); Hemoglobin 14.2 g/dL (12.0-15.0); Immature Granulocytes Count 0.010 X10^3/uL (0.0-0.0); Mean Corp Hgb Conc 33.4 g/dL (32-36); Mean Corpuscular Volume 94.4 fL (81-99); Mean Platelet Vol. 8.9 fl (6.2-12.0); NRBC Flagged by Analyzer 0 % (0-5); Platelet Count 312 K/mm3 (150-450); RBC Distribution Width CV 13.5 % (11.6-14.6); RBC Distribution Width SD 47.2 fl (35.1-43.9); Red Blood Count 4.50 M/mm3 (4.2-5.4); White Blood Count 6.3 K/mm3 (4.4-11.0)
[2024-12-17 11:25] LABS: AST(SGOT) 16 U/L (<=31); Alanine Aminotransfer ALT/SGPT 11 U/L (<=34); Albumin, Serum 4.2 g/dL (3.5-5.0); Alkaline Phosphatase 36 U/L (35-104); Anion Gap 11 (5-15); BUN 16 mg/dL (4-19); BUN/Creat Ratio 17.5 RATIO (10-20); Calcium,Total 9.3 mg/dL (7.6-11.0); Carbon Dioxide 22.5 mmol/L (21.0-32.0); Chloride 107 mmol/L (98-108); Cholesterol 209 mg/dL (<=200); Globulin 2.5 g/dL (2.2-4.2); Glucose 93 mg/dL (70-99); Low Density Lipoprotein Calc. 134 mg/dL; Potassium 4.2 mmol/L (3.3-5.1); Triglycerides 73 mg/dL; Very Low Density Lipoprotein 15 mg/dL (5-40); Vitamin B12 797 pg/mL (180-914); cholesterol:hdl ratio screen 3.43
[2024-12-19 13:08] LABS: Vitamin D 1,25-Dihydroxy 29.9 pg/mL (24.8-81.5)
== END | disposition home or self-care (01) ==
LOC: MTLAB 07:50
PROVIDERS: PCP Nurse Practitioner Family; Referring Provider Nurse Practitioner Family; Visit Provider Nurse Practitioner Family
DX: Z00.00 Encounter for general adult medical examination without abnormal findings (principal)
CPT/HCPCS: 36415; 80053; 80061; 82607; 82652; 84443; 85025

== ENCOUNTER → 2025-03-19 | Outpatient (CLI) | payer BC, SELFPAY ==
--- NOTE | 2025-03-19 14:20 | US_ITS ---
PROCEDURE: TRANSVAGINAL NON- 03/19/2025 REASON FOR EXAM: LLQ PAIN. LMP 03/04/2025 TECHNIQUE: Procedure Code: USTVAG Modality: US Procedure: TRANSVAGINAL NON- COMPARISON: 11/27/2023. FINDINGS: ENDOMETRIUM: Normal thickness of 8.0 mm. Well-positioned intrauterine device (IUD) within the endometrial cavity. UTERUS: Anteverted. Normal size and contour measuring 8.6 x 5.2 x 3.7 cm. No fibroid detected. CERVIX: Normal size and contour. Anechoic cervical nabothian cysts. Mild fluid within the cervical canal. RIGHT OVARY: Normal size and appearance measuring 2.6 x 2.8 x 1.7 cm (volume 6.4 mL). Normal follicles. Normal blood flow. No adnexal mass. LEFT OVARY: Mildly enlarged measuring 4.5 x 3.0 x 1.9 cm (volume 13.6 mL). Normal follicles with a 2.4 cm anechoic dominant follicle. Normal blood flow. No adnexal mass. FREE FLUID: No free fluid. US/Transvaginal Non- IMPRESSION: 1. Mild endocervical fluid, which is nonspecific. 2. IUD in-situ. Reading Location: [id number]
--- OUTSIDE RECORDS SUMMARY | 2025-03-19 14:37 | XMS RPT_ITS | CCD ---
Author Organization [facility] Inform ion Partnership [facility] Care Team Providers Care Esthetician Name Role Phone Wai Villagomez MD Unavailable Dr. Chula Lind Primary Care Provider Dr. Chula Lind Referring Provider [phone] Sharon BUENROSTRO, WILDLIFE ECOLOGIST-C Toño Attending Provider [phone] TY WILLIAMSON MD, DMD Attending Unav ailable Unavailable Primary Care Provider Unavailabl e Unavailable Primary Care Provider Unavailabl e KATHY, PEDRO Referring Unavailable TIZZANO, PEDRO Referring Unavailable TIZZANO, PEDRO Attending Unavailable KATHY, PEDRO Referring Unavailable KATHY, PEDRO Attending Unavailable Sharon MILES, Toño Referring Unavailable Sharon MILES, Toño Attending Unavailable Madison Santos Primary Care Unavailable Tom WILDLIFE ECOLOGIST-C, Madison Primary Care Physician Sharon BUENROSTRO-C, Toño Attending Physician [phone] Sharon BUENROSTRO-C, Toño Referring Provider [phone] Allergies Allergy Classification Reported Allergen(s) Allergy Type Date of Onset Reaction(s) Facility (10 sources) Penicillins; Translations: [PENICILLINS] Allergy to substance 12-20-2004 [facility] Work Phone: Medications Current Medications Medication Drug Class(es) Dates Sig (Normalized) Sig (Original) ALPRAZolam 1 mg oral tablet (8 sources) Benzodiazepine Start: 11-05-2021 End: 09-14-2022 take 1 tablet by mouth once daily take 0.25 mg by mouth once as ne eded ALPRAZolam (XANAX) 0.5 mg tablet Take 0.25 mg by mouth as needed. Only when she fly's which is every couple months Active ciclopirox 80 mg/ml topical solution (1 source) Start: 08-12-2022 ciprofloxacin 500 mg oral tablet (1 source) Quinolone Antimicrobial Start: 05-20-2022 take 1 tablet by mouth twice daily cyclobenzaprine hydrochloride 10 mg oral tablet (4 sources) Muscle Relaxant Start: 04-16-2018 take 1 tablet by mouth twice daily as needed for muscle spasms cyclobenzaprine (FLEXERIL) 10 mg tablet Indications: Fall, initial encounter , Acute midline low back pain, with sciatica presence unspecified , Scoliosis (and kyphoscoliosis), idiopathic Take 1 tablet by mouth twice daily as needed for Muscle Spasm. 60 tablet 04/16/2018 Active Comment on above: Take 1 tablet by luis fernando th twice daily as needed for Muscle Spasm. fluconazole 150 mg oral tablet (1 source) Azole Antifungal Start: 05-20-2022 Lactobacillus acidophilus (3 sources) Lactobacillus acidophilus (PROBIOTIC ORAL) Take by mouth. Active levonorgestrel 0.034324 mg/hr intrauterine system (3 sources) Progestin, Progestin-containi ng Intrauterine Device Start: 01-18-2022 levonorgestrel (MIRENA) 21 mcg/24 hr (8 yrs) 52 mg IUD 1 Each by INTRAUTERINE route one time only. 01/18/2022 Active MULTIVITAMIN ORAL (3 sources) MULTIVITAMIN ORA L Take by mouth. Active Multivitamin preparation (4 sources) Start: 12-12-2018 Multivitamin Active PO December 12, 2018 9:56am Start: 12-12-2018 Start: 12-12-2018 Multivitamin A ctive PO December 11, 2018 11:00pm naproxen 500 mg oral tablet (5 sources) Nonsteroidal Anti-inflammatory Drug Start: 02-15-2022 take 1 tablet by mouth twice daily as needed for pain Start: 12-12-2018 End: 10-18-2019 take 1 tablet by mouth twice daily as needed for pain Naproxen 500 mg tablet Discontinued 500 mg PO TWICE A DAY as needed for pain 180 1 December 12, 2018 12:00am October 18, 2019 1:43pm nitrofurantoin, macrocrystals 25 mg / nitrofurantoin, monohydrate 75 mg oral capsule (2 sources) Nitrofuran Antibacterial Start: 06-30-2022 take 1 capsule by mouth every twelve hours at mealtime Start: 06-13-2022 End: 06-18-2022 take 1 capsule by mouth twice daily nitrofurantoin monohydrate and macrocrystal (MACROBID) 100 mg capsule Indications: Urinary frequency Take 1 capsule by mouth twice daily for 5 days. 10 capsule 0 06/13/2022 06/18/2022 Active Comment on above: Take 1 capsule by mo uth twice daily for 5 days. predniSONE 10 mg oral tablet (4 sources) Start: 04-16-2018 predniSONE (DELTASONE) 10 mg tablet Indications: Fall, initial encounter , Acute midline low back pain, with sciatica presence unspecified , Scoliosis (and kyphoscoliosis), idiopathic Take 40 mg x 3 days, 20 mg x 3 days, 10 mg x 3 days. Take with food, once daily 21 tablet 04/16/2018 Active Comment on above: Take 40 mg x 3 days, 20 mg x 3 days, 10 mg x 3 days. Take with food, once daily Tirzepatide (1 source) Start: 07-27-2022 Tirzepatide (Mounjaro) 5 mg/0.5 mL pen injector (1 source) Start: 12-23-2021 Tirzepatide (Mounjaro) 5 mg/0.5 mL pen injector Active 5 MG SC EVERY WEEK 2 December 22, 2021 11:00pm Completed/Discontinued Medications Medication Drug Class(es) Dates Sig (Normalized) Sig (Original) ethinyl estradiol 0.03 mg / norethindrone acetate 1.5 mg oral tablet (8 sources) Estrogen Start: 03-11-2015 End: 12-12-2018 Norethindrone Ac-Eth Estradiol 1 EACH tablet Discontinued 1 NMA PO DAILY March 11, 2015 1:00am December 12, 2018 10:02am Start: 03-11-2015 End: 12-12-2018 Norethindrone Ac-Eth Estradi ol Discontinued 1 EACH PO DAILY March 11, 2015 9:56am December 12, 2018 10:02am Norethindrone Ac et-Ethinyl Est 1.5-30 mg-mcg Take by mouth as directed. Active Norethindrone Ac et-Ethinyl Est 1.5-30 mg-mcg Take by mouth as directed. 0 Active Comment on above: Take by mouth as dir ected. Drug Treatment Unknown - unknown (1 source) No information a vailable. Probiotic (4 sources) Start: 12-12-2018 End: 10-18-2019 Probiotic Discontinued PO December 12, 2018 9:55am October 18, 2019 1:43pm Start: 12-12-2018 End: 10-18-2019 Probiotic Discontinued PO 0 December 12, 2018 12:00am October 18, 2019 1:43pm Start: 12-12-2018 End: 10-18-2019 Probiotic Discontinued PO Se ptember 2018 11:00pm October 18, 2019 12:43pm Tirzepatide (1 source) Start: 05-20-2022 End: 07-27-2022 Tirzepatide 10 mg/0.5 mL pen injector Discontinued 10 mg SC EVERY WEEK 2 May 20, 2022 3:54pm July 27, 2022 12:05pm Class 1 obesity Obesity, unspecified Tirzepatide (1 source) Start: 12-23-2021 End: 04-20-2022 Tirzepatide (Mounjaro) 5 mg/0.5 mL pen injector Discontinued 5 mg SC EVERY WEEK 2 December 23, 2021 12:00am April 20, 2022 5:39pm Class 1 obesity Obesity, unspecified Tirzepatide (1 source) Start: 04-20-2022 End: 05-20-2022 Tirzepatide (Mounjaro) 7.5 mg/0.5 mL pen injector Discontinued 7.5 mg SC EVERY WEEK 2 April 20, 2022 5:38pm May 20, 2022 4:03pm Class 1 obesity Obesity, unspecified triamcinolone acetonide 40 mg/ml injectable suspension (2 sources) Corticosteroid Start: 03-23-2018 End: 03-23-2018 Kenalog (triamcinolone acetonide) 40 mg/mL suspension for injection Discontinued 80 MG INTRAARTIC ONCE 2 March 23, 2018 10:57am March 23, 2018 11:42am Problems Active Problems Problem Classification Problem Date Documented Da te Episodic/Chronic Anxiety disorders (1 source) Other specified anxiety disorders; Translations: [Other anxiety states] Chronic Blindness and vision defects (4 sources) Temporary visual disturbance; Translations: [Unspecified visual disturbance] 08-25-2016 Episodic Cardiac dysrhythmias (4 sources) Multiple premature ventricular complexes; Translations: [Ventricular premature depolarization] Onset: 05-24-2013 05-24-2013 Chronic Contraceptive and procreative management (1 source) Intrauterine contraceptive device in situ; Translations: [Presence of (intrauterine) contraceptive device] 05-20-2022 Episodic Genitourinary symptoms and ill-defined conditions (1 source) Increased frequency of urination; Translations: [Frequency of micturition] Episodic Immunizations and screening for infectious disease (4 sources) Patient encounter status; Translations: [Encounter for screening for human papillomavirus (HPV)] 11-29-2023 Episodic Other acquired deformities (8 sources) Scoliosis deformity of spine; Translations: [Scoliosis, unspecified] 08-25-2016 Chronic Other bone disease and musculoskeletal deformities (4 sources) Idiopathic kyphoscoliosis; Translations: [Other idiopathic scoliosis, site unspecified] Onset: 08-09-2005 08-09-2005 Chronic Other nervous system disorders (4 sources) Paresthesia; Translations: [Paresthesia of skin] 08-25-2016 Episodic Other nutritional; endocrine; and metabolic disorders (4 sources) Obese class I; Translations: [Obesity, unspecified] 08-25-2016 Chronic Other screening for suspected conditions (not mental disorders or infectious disease) (2 sources) Cancer cervix screening status; Translations: [Encounter for screening for malignant neoplasm of cervix] Onset: 12-05-2024 11-29-2023 Episodic Spondylosis; intervertebral disc disorders; other back problems (8 sources) Chronic back pain ; Translations: [Dorsalgia, unspecified] Onset: 03-22-2016 03-22-2016 Episodic Unclassified (1 source) No current problems or disability 09-02-2016 Unclassified (1 source) Patient encounter status 12-02-2024 Past or Other Problems Problem Classification Problem Date Documented Da te Episodic/Chronic Nonspecific chest pain (4 sources) Atypical chest pain; Translations: [Other chest pain] Onset: 05-24-2013 05-24-2013 Episodic Results Test Name Value Interpretation Reference Range Facility Vitamin D 1,25-Dihydroxyon 1 VIT D 1,25 DIHY 29.9 pg/mL Normal 24.8-81.5 [facility] Comment on above: Result Comment: Perf ormed at: - [facility] [address] [id number] Window Installer: Ced Brown MD, Phone: [phone] Performed By: #### L 100.0100, L3300.0960, L500.4050, L500.4100, L501.9520, L503.0106 #### [facility] Laboratory [address] [place], [place], [id number] Absolute lymphocyte countOrd ered By: Toño Herrera on 12-17-2024 Lymphocytes Auto (Unsp spec) [#/Vol] 2.32 10*3/uL 0.83-4.51 [facility] Absolute neutrophil countOrd ered By: Toño Herrera on 12-17-2024 Neutrophils (Bld) [#/Vol] 3.2 10*3/uL 2.0-7.7 [facility] Anion gap in Serum or Plasma Ordered By: Toño Herrera on 12-17-2024 Anion gap [Moles/Vol] 11 mmol/L 5-15 [facility] Automated lymphocyte count a s percentage of total leukocytesOrdered By: Toño Herrera on 12-17-2024 Lymphocytes/100 WBC Auto (Unsp spec) 36.8 % - [facility] BUN/creatinine ratioOrdered By: Toño Herrera on 12-17-2024 Urea nitrogen/Creatinine [Mass ratio] 17.5 mg/mg 10- [facility] Basophil percentageOrdered B y: Toño Herrera on 12-17-2024 Basophils/100 WBC (Bld) 1.3 % High 0-1 [facility] Bilirubin, totalOrdered By: Toño Herrera on 12-17-2024 Bilirubin [Mass/Vol] 0.88 mg/dL 0.00-1.30 [facility] CBC W/Diff, Automatedon 11-20 Absolute Lymph 2.32 X10 3/uL Normal 0.83-4.51 [facility] Comment on above: Performed By: #### L 100.0100, L3300.0960, L500.4050, L500.4100, L501.9520, L503.0106 #### [facility] Laboratory [address] [place], [address] Absolute Neut 3.2 X10 3/uL Normal 2.0-7.7 [facility] Comment on above: Performed By: #### L 100.0100, L3300.0960, L500.4050, L500.4100, L501.9520, L503.0106 #### [facility] Laboratory [address] [place], [address] Basophils/100 WBC (Bld) 1.3 % High 0-1 [facility] Comment on above: Performed By: #### L 100.0100, L3300.0960, L500.4050, L500.4100, L501.9520, L503.0106 #### [facility] Laboratory [address] [place], [address] Eosinophils/100 WBC (Bld) 2.9 % Normal 0-5 [facility] Comment on above: Performed By: #### L 100.0100, L3300.0960, L500.4050, L500.4100, L501.9520, L503.0106 #### [facility] Laboratory [address] [place], [address] Erythrocyte distribution width (RBC) [Ratio] 13.5 % Normal 11.6-14.6 [facility] Comment on above: Performed By: #### L 100.0100, L3300.0960, L500.4050, L500.4100, L501.9520, L503.0106 #### [facility] Laboratory [address] [place], [address] Hematocrit (Bld) [Volume fraction] 42.5 % Normal 37-47 [facility] Comment on above: Performed By: #### L 100.0100, L3300.0960, L500.4050, L500.4100, L501.9520, L503.0106 #### [facility] Laboratory [address] [place], [address] Hemoglobin (Bld) [Mass/Vol] 14.2 g/dL Normal 12.0-15.0 [facility] Comment on above: Performed By: #### L 100.0100, L3300.0960, L500.4050, L500.4100, L501.9520, L503.0106 #### [facility] Laboratory [address] [place], [address] IG% 0.200 Normal 0.0-0.9 [facility] Comment on above: Result Comment: IG% - Immature Granulocytes (promyelocytes, myelocytes and metamyelocytes) > 1% indicates that a LEFT SHIFT is Present. Performed By: #### L 100.0100, L3300.0960, L500.4050, L500.4100, L501.9520, L503.0106 #### [facility] Laboratory [address] [facility] [place], [address] Lymphocytes/100 WBC (Bld) 36.8 % Normal 19-41 [facility] Comment on above: Performed By: #### L 100.0100, L3300.0960, L500.4050, L500.4100, L501.9520, L503.0106 #### [facility] Laboratory [address] [place], [address] MCH (RBC) [Entitic mass] 31.6 pg Normal 27.0-32.0 [facility] Comment on above: Performed By: #### L 100.0100, L3300.0960, L500.4050, L500.4100, L501.9520, L503.0106 #### [facility] Laboratory [address] [place], [address] MCHC (RBC) [Mass/Vol] 33.4 g/dL Normal 32-36 [facility] Comment on above: Performed By: #### L 100.0100, L3300.0960, L500.4050, L500.4100, L501.9520, L503.0106 #### [facility] Laboratory [address] [place], [address] MCV (RBC) [Entitic vol] 94.4 fL Normal 81-99 [facility] Comment on above: Performed By: #### L 100.0100, L3300.0960, L500.4050, L500.4100, L501.9520, L503.0106 #### [facility] Laboratory [address] [place], [address] Monocytes/100 WBC (Bld) 7.8 % Normal 0-10 [facility] Comment on above: Performed By: #### L 100.0100, L3300.0960, L500.4050, L500.4100, L501.9520, L503.0106 #### [facility] Laboratory [address] [place], [address] Neutrophils/100 WBC (Bld) 51.0 % Normal 47-70 [facility] Comment on above: Performed By: #### L 100.0100, L3300.0960, L500.4050, L500.4100, L501.9520, L503.0106 #### [facility] Laboratory [address] [place], [address] Nucleated RBC (Bld) [#/Vol] 0 10*3/uL Normal 0-5 [facility] Comment on above: Performed By: #### L 100.0100, L3300.0960, L500.4050, L500.4100, L501.9520, L503.0106 #### [facility] Laboratory [address] [place], [address] Platelet mean volume (Bld) [Entitic vol] 8.9 fL Normal 6.2-12.0 [facility] Comment on above: Performed By: #### L 100.0100, L3300.0960, L500.4050, L500.4100, L501.9520, L503.0106 #### [facility] Laboratory [address] [place], [address] Platelets (Bld) [#/Vol] 312 10*3/uL Normal 150-450 [facility] Comment on above: Performed By: #### L 100.0100, L3300.0960, L500.4050, L500.4100, L501.9520, L503.0106 #### [facility] Laboratory [address] [place], [address] RBC (Bld) [#/Vol] 4.50 10*6/uL Normal 4.2-5.4 [facility] Comment on above: Performed By: #### L 100.0100, L3300.0960, L500.4050, L500.4100, L501.9520, L503.0106 #### [facility] Laboratory [address] [place], [address] RDW SD 47.2 fl High 35.1-43.9 [facility] Comment on above: Performed By: #### L 100.0100, L3300.0960, L500.4050, L500.4100, L501.9520, L503.0106 #### [facility] Laboratory [address] [place], [address] WBC (Bld) [#/Vol] 6.3 10*3/uL Normal 4.4-11.0 [facility] Comment on above: Performed By: #### L 100.0100, L3300.0960, L500.4050, L500.4100, L501.9520, L503.0106 #### [facility] Laboratory [address] [place], [address] Calculated very low density lipoprotein (VLDL) cholesterol measurementOrdered By: Toño Herrera on 12-17-2024 Calculated very low density lipoprotein (VLDL) cholesterol measurement 15 mg/dL 5-40 [facility] Carbon dioxide, total [Moles /volume] in Central venous bloodOrdered By: Toño Herrera on 12-17-2024 CO2 [Moles/Vol] 22.5 mmol/L 21.0-32.0 [facility] Chloride assayOrdered By: Delmar Herrera on 12-17-2024 Chloride [Moles/Vol] 107 mmol/L 98-108 [facility] Comprehensive Metabolic Prof ilon 12-17-2024 Albumin [Mass/Vol] 4.2 g/dL Normal 3.5-5.0 [facility] Comment on above: Performed By: #### L 100.0100, L3300.0960, L500.4050, L500.4100, L501.9520, L503.0106 #### [facility] Laboratory [address] [place], [address] Albumin/Globulin [Mass ratio] 1.7 {ratio} Normal 0.9-2.4 [facility] Comment on above: Performed By: #### L 100.0100, L3300.0960, L500.4050, L500.4100, L501.9520, L503.0106 #### [facility] Laboratory [address] [place], [address] ALK PHOS 36 U/L Normal 35-104 [facility] Comment on above: Performed By: #### L 100.0100, L3300.0960, L500.4050, L500.4100, L501.9520, L503.0106 #### [facility] Laboratory [address] [place], [address] ALT [Catalytic activity/Vol] 11 U/L Normal <=34 [facility] Comment on above: Performed By: #### L 100.0100, L3300.0960, L500.4050, L500.4100, L501.9520, L503.0106 #### [facility] Laboratory [address] [place], [address] AST [Catalytic activity/Vol] 16 U/L Normal <=31 [facility] Comment on above: Performed By: #### L 100.0100, L3300.0960, L500.4050, L500.4100, L501.9520, L503.0106 #### [facility] Laboratory [address] [place], [address] Bilirubin [Mass/Vol] 0.88 mg/dL Normal 0.00-1.30 [facility] Comment on above: Performed By: #### L 100.0100, L3300.0960, L500.4050, L500.4100, L501.9520, L503.0106 #### [facility] Laboratory [address] [place], [address] BUN/CRE 17.5 RATIO Normal 10-20 [facility] Comment on above: Performed By: #### L 100.0100, L3300.0960, L500.4050, L500.4100, L501.9520, L503.0106 #### [facility] Laboratory [address] [place], [address] Calcium [Mass/Vol] 9.3 mg/dL Normal 7.6-11.0 [facility] Comment on above: Performed By: #### L 100.0100, L3300.0960, L500.4050, L500.4100, L501.9520, L503.0106 #### [facility] Laboratory [address] [place], [address] Chloride [Moles/Vol] 107 mmol/L Normal 98-108 [facility] Comment on above: Performed By: #### L 100.0100, L3300.0960, L500.4050, L500.4100, L501.9520, L503.0106 #### [facility] Laboratory [address] [place], [address] CO2 [Moles/Vol] 22.5 mmol/L Normal 21.0-32.0 [facility] Comment on above: Performed By: #### L 100.0100, L3300.0960, L500.4050, L500.4100, L501.9520, L503.0106 #### [facility] Laboratory [address] [place], [address] Creatinine [Mass/Vol] 0.92 mg/dL Normal 0.70-1.20 [facility] Comment on above: Performed By: #### L 100.0100, L3300.0960, L500.4050, L500.4100, L501.9520, L503.0106 #### [facility] Laboratory [address] [place], [address] GAP 11 Normal 5-15 [facility] Comment on above: Performed By: #### L 100.0100, L3300.0960, L500.4050, L500.4100, L501.9520, L503.0106 #### [facility] Laboratory [address] [place], [address] GFR/1.73 sq M.predicted among non-blacks MDRD (S/P/Bld) [Vol rate/Area] 80 mL/min/{1.73_m2} Normal >60 [facility] Comment on above: Result Comment: mL/m in/1.73m2 CKD-EPI Creatinine Equation (2020) Performed By: #### L 100.0100, L3300.0960, L500.4050, L500.4100, L501.9520, L503.0106 #### [facility] Laboratory [address] [place], [address] Globulin (S) [Mass/Vol] 2.5 g/dL Normal 2.2-4.2 [facility] Comment on above: Performed By: #### L 100.0100, L3300.0960, L500.4050, L500.4100, L501.9520, L503.0106 #### [facility] Laboratory [address] [place], [address] Glucose [Mass/Vol] 93 mg/dL Normal 70-99 [facility] Comment on above: Performed By: #### L 100.0100, L3300.0960, L500.4050, L500.4100, L501.9520, L503.0106 #### [facility] Laboratory [address] [place], [address] Potassium [Moles/Vol] 4.2 mmol/L Normal 3.3-5.1 [facility] Comment on above: Performed By: #### L 100.0100, L3300.0960, L500.4050, L500.4100, L501.9520, L503.0106 #### [facility] Laboratory [address] [place], [address] Sodium [Moles/Vol] 140 mmol/L Normal 133-145 [facility] Comment on above: Performed By: #### L 100.0100, L3300.0960, L500.4050, L500.4100, L501.9520, L503.0106 #### [facility] Laboratory [address] [place], [address] T PROT 6.7 g/dL Normal 5.9-8.4 [facility] Comment on above: Performed By: #### L 100.0100, L3300.0960, L500.4050, L500.4100, L501.9520, L503.0106 #### [facility] Laboratory [address] [place], [address] Urea nitrogen [Mass/Vol] 16 mg/dL Normal 4-19 [facility] Comment on above: Performed By: #### L 100.0100, L3300.0960, L500.4050, L500.4100, L501.9520, L503.0106 #### [facility] Laboratory [address] [place], [address] Eosinophil percentageOrdered By: Toño Herrera on 12-17-2024 Eosinophils/100 WBC (Bld) 2.9 % 0-5 [facility] Erythrocyte distribution wid th ratioOrdered By: Toño Herrera on 12-17-2024 Erythrocyte distribution width (RBC) [Ratio] 13.5 % 11.6-14.6 [facility] [facility] [place] Erythrocyte distribution wid th standard deviationOrdered By: Toño Herrera on 12-17-2024 Erythrocyte distribution width (RBC) [Ratio] 47.2 fl High 35.1-43.9 [facility] [place] Glomerular filtration rate ( GFR) estimation/1.73 sq m using serum, plasma, or whole bOrdered By: Toño Herrera on 12-17-2024 GFR/1.73 sq M.predicted among non-blacks MDRD (S/P/Bld) [Vol rate/Area] 80 mL/min/{1.73_m2} >60 [facility] [place] Comment on above: mL/min/1.73m2 CKD-EP I Creatinine Equation (2020) Hematocrit Auto (Bld) [Volum e fraction]Ordered By: Toño Herrera on 12-17-2024 Hematocrit (Bld) [Volume fraction] 42.5 % 37-47 [facility] [place] Hemoglobin measurementOrdere d By: Toño Herrera on 12-17-2024 Hemoglobin (Bld) [Mass/Vol] 14.2 g/dL 12.0-15.0 [facility] [place] Immature granulocytes/100 WB C Auto (Bld)Ordered By: Toño Herrera on 12-17-2024 Immature granulocytes/100 WBC (Bld) 0.200 % 0.0-0.9 [facility] [place] Comment on above: IG% - Immature Granu locytes (promyelocytes, myelocytes and metamyelocytes) > 1% indicates that a LEFT SHIFT is Present. LDL calc ser/plasOrdered By: Toño Herrera on 12-17-2024 Cholesterol in LDL [Mass/Vol] 134 mg/dL [facility] [place] Comment on above: Savftstcnb=083-581 m g/dL & Higher Wxpa=954 mg/dL or greaterFriedwald Equation for LDL-C Laboratory - Chemistry and C hemistry - challengeOrdered By: Toño Herrera on 12-17-2024 AST [Catalytic activity/Vol] 16 U/L <32 [facility] [place] Lipid Profileon 12-17-2024 CHOL:HDL 3.43 Normal [facility] [place] Comment on above: Performed By: #### L 100.0100, L3300.0960, L500.4050, L500.4100, L501.9520, L503.0106 #### [facility] [place] Laboratory [address] [place], [address] Cholesterol [Mass/Vol] 209 mg/dL High <=200 [facility] Comment on above: Result Comment: Chol esterol level, Desirable <200 mg/dL Borderline high cholesterol 200-239 mg/dL High cholesterol >=240 mg/dL Recommendations of the NCEP Adult Treatment Panel for the following risk-cutoff thresholds for the [place] population. Performed By: #### L 100.0100, L3300.0960, L500.4050, L500.4100, L501.9520, L503.0106 #### [facility] [place] Laboratory [address] [place], [address] Cholesterol in HDL [Mass/Vol] 61 mg/dL Normal [facility] [place] Comment on above: Result Comment: Laura onal Cholesterol Education Program (NCEP) guidelines: <40 mg/dL: Low HDL-cholesterol (major risk factor for CHD) >= 60 mg/dL: High HDL-cholesterol (negative risk factor for CHD) HDL-cholesterol is affected by a number of factors, e.g. smoking, exercise, hormones, sex and age. Performed By: #### L 100.0100, L3300.0960, L500.4050, L500.4100, L501.9520, L503.0106 #### [facility] [place] Laboratory [address] [place], [address] Cholesterol in LDL [Mass/Vol] 134 mg/dL Normal [facility] [place] Comment on above: Result Comment: Bord vxwwbq=813-556 mg/dL Higher Ivli=159 mg/dL or greater Friedwald Equation for LDL-C Performed By: #### L 100.0100, L3300.0960, L500.4050, L500.4100, L501.9520, L503.0106 #### [facility] [place] Laboratory [address] [place], [address] Cholesterol in VLDL [Mass/Vol] 15 mg/dL Normal 5-40 [facility] [place] Comment on above: Performed By: #### L 100.0100, L3300.0960, L500.4050, L500.4100, L501.9520, L503.0106 #### [facility] [place] Laboratory [address] [place], [address] Triglyceride [Mass/Vol] 73 mg/dL Normal [facility] Comment on above: Result Comment: The drugs N-Acetylcysteine and Metamizole may falsely depress this assay. Normal range: <150 mg/dL Borderline High: 150-199 mg/dL High: 200-499 mg/dL Very High: >500 mg/dL Performed By: #### L 100.0100, L3300.0960, L500.4050, L500.4100, L501.9520, L503.0106 #### [facility] [place] Laboratory [address] [place], [place], [id number] MCV (mean corpuscular volume ) determinationOrdered By: Toño Herrera on 12-17-2024 MCV (RBC) [Entitic vol] 94.4 fL 81-99 [facility] Mean corpuscular hemoglobin (MCH) determinationOrdered By: Toño Herrera on 12-17-2024 MCH (RBC) [Entitic mass] 31.6 pg 27.0-32.0 [facility] [place] Mean corpuscular hemoglobin concentration (MCHC) determinationOrdered By: Toño Herrera on 12-17-2024 MCHC (RBC) [Mass/Vol] 33.4 g/dL 32-36 [facility] Mean platelet volume determi nationOrdered By: Toño Herrera on 12-17-2024 Platelet mean volume (Bld) [Entitic vol] 8.9 fL 6.2-12.0 [facility] [place] Monocyte percentageOrdered B y: Toño Herrera on 12-17-2024 Monocytes/100 WBC (Bld) 7.8 % 0-10 [facility] Neutrophil percentageOrdered By: Toño Herrera on 12-17-2024 Neutrophils/100 WBC (Bld) 51.0 % 47-70 [facility] [place] Nucleated red blood cell per centageOrdered By: Toño Herrera on 12-17-2024 Nucleated RBC/100 WBC (Bld) [Ratio] 0 % 0-5 [facility] [place] Platelet countOrdered By: Delmar Herrera on 12-17-2024 Platelets (Bld) [#/Vol] 312 10*3/uL 150-450 [facility] [place] Potassium measurement (mass/ volume)Ordered By: Toño Herrera on 12-17-2024 Potassium (Unsp spec) [Mass/Vol] 4.2 mmol/L 3.3-5.1 [facility] [place] RBC Auto (Bld) [#/Vol]Ordere d By: Toño Herrera on 12-17-2024 RBC (Bld) [#/Vol] 4.50 10*6/uL 4.2-5.4 [facility] Screening total cholesterol/ high density lipoprotein (HDL) cholesterol ratioOrdered By: Toño Herrera on 12-17-2024 Cholesterol.total/Choles terol in HDL [Mass ratio] 3.43 {ratio} [facility] [place] Serum creatinine measurement (mass/volume)Ordered By: Toño Herrera on 12-17-2024 Creatinine [Mass/Vol] 0.92 mg/dL 0.70-1.20 [facility] Serum globulin measurementOr dered By: Toño Herrera on 12-17-2024 Globulin (S) [Mass/Vol] 2.5 g/dL 2.2-4.2 [facility] Serum glucose measurement (m ass/volume)Ordered By: Toño Herrera on 12-17-2024 Glucose [Mass/Vol] 93 mg/dL 70-99 [facility] Serum or plasma alanine muñiz otransferase (ALT) measurementOrdered By: Toño Herrera on 12-17-2024 ALT [Catalytic activity/Vol] 11 U/L <35 [facility] [place] Serum or plasma albumin soila urement (mass/volume)Ordered By: Toño Herrera on 12-17-2024 Albumin [Mass/Vol] 4.2 g/dL 3.5-5.0 [facility] Serum or plasma albumin/glob ulin mass ratioOrdered By: Toño Herrera on 12-17-2024 Albumin/Globulin [Mass ratio] 1.7 {ratio} 0.9-2.4 [facility] [place] Serum or plasma alkaline hernesto sphatase measurementOrdered By: Toño Herrera on 12-17-2024 ALP [Catalytic activity/Vol] 36 U/L 35-104 [facility] [place] Serum or plasma calcitriol m easurement (mass/volume)Ordered By: Toño Herrera on 12-17-2024 1,25-dihydroxyvitamin D3 [Mass/Vol] 29.9 pg/mL 24.8-81.5 [facility] [place] Comment on above: Performed at: [address] [id number] Director: Ced Brown MD, Phone: [phone] Serum or plasma calcium soila urement (mass/volume)Ordered By: Toño Herrera on 12-17-2024 Calcium [Mass/Vol] 9.3 mg/dL 7.6-11.0 [facility] Serum or plasma cholesterol in HDL measurement (mass/volume)Ordered By: Toño Herrera on 12-17-2024 Cholesterol in HDL [Mass/Vol] 61 mg/dL >40 [facility] [place] Comment on above: National Cholesterol Education Program (NCEP) guidelines:<40 mg/dL: Low HDL-cholesterol (major risk factor for CHD)>= 60 mg/dL: High HDL-cholesterol (negative risk factor for CHD)HDL-cholesterol is affected by a number of factors, e.g. smoking, exercise, hormones, sex and age. Serum or plasma cholesterol measurement (mass/volume)Ordered By: Toño Herrera on 12-17-2024 Cholesterol [Mass/Vol] 209 mg/dL High <201 [facility] Comment on above: Cholesterol level, D esirable <200 mg/dLBorderline high cholesterol 200-239 mg/dLHigh cholesterol >=240 mg/dLRecommendations of the NCEP Adult Treatment Panel for the following risk-cutoff thresholds for the [place] population. Serum or plasma urea nitroge n measurement (mass/volume)Ordered By: Toño Herrera on 12-17-2024 Urea nitrogen [Mass/Vol] 16 mg/dL 4-19 [facility] [place] Sodium levelOrdered By: Toño Herrera on 12-17-2024 Sodium [Moles/Vol] 140 mmol/L 133-145 [facility] TSH DL <= 0.005 mIU/L QnOrde red By: Toño Herrera on 12-17-2024 TSH Qn 1.810 uIU/mL 0.300-4.200 [facility] [place] Thyroid Stim Hormone (TSH)on 12-17-2024 TSH 1.810 uIU/mL Normal 0.300-4.200 [facility] [place] Comment on above: Performed By: #### L 100.0100, L3300.0960, L500.4050, L500.4100, L501.9520, L503.0106 #### [facility] [place] Laboratory [address] [place], [address] Total proteinOrdered By: Franci Herrera on 12-17-2024 Protein [Mass/Vol] 6.7 g/dL 5.9-8.4 [facility] Triglycerides measurementOrd ered By: Toño Herrera on 12-17-2024 Triglyceride [Mass/Vol] 73 mg/dL <199 [facility] Comment on above: The drugs N-Acetylcy steine and Metamizole may falsely depress this assay. Normal range: <150 mg/dLBorderline High: 150-199 mg/dLHigh: 200-499 mg/dLVery High: >500 mg/dL Vitamin B12on 12-17-2024 Cobalamin (Vitamin B12) [Mass/Vol] 797 pg/mL Normal 180-914 [facility] [place] Comment on above: Performed By: #### L 100.0100, L3300.0960, L500.4050, L500.4100, L501.9520, L503.0106 #### [facility] [place] Laboratory [address] [place], [address] Vitamin B12 ser/plasOrdered By: Toño Herrera on 12-17-2024 Cobalamin (Vitamin B12) [Mass/Vol] 797 pg/mL 180-914 [facility] [place] White blood cell (WBC) count Ordered By: Toño Herrera on 12-17-2024 WBC (Bld) [#/Vol] 6.3 10*3/uL 4.4-11.0 [facility] SURY SCREENING W TOMOon 12-05 SURY SCREENING W GINNA * * *Final Report* * * DATE OF EXAM: Dec 05 2024 12:49PM [facility] 0582 - SURY SCREENING W GINNA / PROCEDURE REASON: Encounter for screening mammogram for breast cancer * * * * Physician Interpretation * * * * RESULT: [place] [address] #[id number] - SURY SCREENING W GINNA HISTORY: 39 [...] Jennifer Baugh M.D. Electronically signed on: 12/08/2024 Profile Saw Operator: KERRY Transcribe Date/Time: Dec 05 2024 12:33P Dictated by: JENNIFER BAUGH MD This examination was interpreted and the report reviewed and electronically signed by: JENNIFER BAUGH MD on Dec 08 2024 9:47AM EST [id number] CN Normal [facility] CNOVon 12-02-2024 CNOV Office Visit (OBGYWM) DEEPTHI PHOENIX ([id number]) 1985 F Date Time Provider Department 12/02/24 9:10 AM PEDRO GILBERT OBGYWM During your visit today, we recorded the following information about you: Blood pressure Weight Height Last Period 122/78 83.5 kg 1.638 m 11/19/24 Pedro Gilbert MD 12/02/2024 10:35 AM Signed Power Hammer Operator offered: Patient accepts, visit chaperoned by Yamilet Arreaga. Deepthi is a 39 year old who presents [...] Living0 SAB0 IAB0 Ectopic0 Multiple0 Live Births0 Assistant Surveyor History LMP: 11/19/2024, Having periods Age at Menarche: 12 Age at First : Age at Menopause: Assistant Surveyor History Comments: Sexual Activity: Yes; Male Contraception: [...] due to assymetry PAST SURGICAL HISTORY OF [place] tooth extraction x 4 FAMILY HISTORY Problem [...] discussed with the Patient or Patient's Authorized Cargo Trimmer. As applicable, any other physician, advance practice provider, medical student, or other health professional student that will be observing or involved in the sensitive examination for educational or training purposes was discussed with the Patient or Authorized Cargo Trimmer. The Patient or Authorized Cargo Trimmer has agreed to proceed with the sensitive [...] external genitalia normal, normal Bartholin's glands, urethra, Woodbine's glands, no vulvar lesions, no cervical lesions, [...] Pedro Gilbert MD Referring Provider: PEDRO GILBERT [[id number]] Allergies As of Date: 12/02/2024 Noted Allergy Reaction PENICILLINS 12/20/2004 4 - Hives Date Reviewed: 12/02/2024 Reviewed by: Pedro Gilbert MD - Fully Assessed Reason for Visit: [facility] [[id number]] Primary Visit Diagnosis:Encounter f (more content not included)... Normal [facility] SURY SCREENING W TOMOon 02-06 SURY SCREENING W GINNA * * *Final Report* * * DATE OF EXAM: Feb 07 2024 11:28AM [facility] 0582 - SURY SCREENING W GINNA / PROCEDURE REASON: Encounter for screening mammogram for breast cancer * * * * Physician Interpretation * * * * RESULT: [place] [address] #[id number] - SURY SCREENING W GINNA HISTORY: Patient [...] Pedro العلي M.D. Electronically signed on: 02/10/2024 Profile Saw Operator: KERRY Transcribe Date/Time: Feb 07 2024 11:14A Dictated by: PEDRO العلي MD This examination was interpreted and the report reviewed and electronically signed by: PEDRO العلي MD on Feb 10 2024 12:47AM EST [id number] CN Normal [facility] UA DIP, URINE (POC)on 2022 BILIRUBIN UA (POCT) Negative Negative [facility] CLARITY UA (POCT) Cloudy [facility] COLOR UA (POCT) Dark yellow [facility] GLUCOSE UA (POCT) Negative Negative mg/dL [facility] HEMOGLOBIN/BLOOD UA (POCT) Moderate Abnormal Negative [facility] KETONE UA (POCT) Negative Negative mg/dL [facility] LEUKOCYTES UA (POCT) Moderate Abnormal Negative [facility] NITRITE UA (POCT) Positive Abnormal Negative [facility] PH UA (POCT) 5.5 4.5 - 8.0 [facility] Protein Ql (U) Negative Negative mg/dL [facility] SPECIFIC GRAVITY UA (POCT) 1.010 1.005 - 1.030 [facility] UROBILINOGEN UA (POCT) 0.2 E.U./dL Yanna l E.U./dL [facility] Basophil percentageon 2021 Bilirubin [Mass/Vol] 0.80 mg/dL 0.20-1.00 [facility] Work Phone: Comment on above: For patients on eltr ombopag therapy, use of Dimension [place] TBIL is not recommended. Chloride [Moles/Vol] 105 mmol/L 98-[address] [facility] Work Phone: [phone] Glucose [Mass/Vol] 74 mg/dL 74-106 [facility] Work Phone: [phone] Potassium [Moles/Vol] 3.9 mmol/L 3.5-5.1 [facility] Work Phone: [phone] Protein [Mass/Vol] 7.3 g/dL 6.4-8.2 [facility] Work Phone: [phone] Sodium [Moles/Vol] 139 mmol/L 136-145 [facility] Work Phone: [phone] WBC (Bld) [#/Vol] 11.8 10*3/uL 4.4-11.0 [facility] Work Phone: [phone] Blood erythrocytes count (nu mber/volume)on 01-20-2022 RBC (Bld) [#/Vol] 4.18 10*6/uL 4.2-5.4 [facility] Work Phone: [phone] Blood hemoglobin measurement (mass/volume)on 01-20-2022 Hemoglobin (Bld) [Mass/Vol] 13.5 g/dL 12.0-15.0 [facility] [place] Work Phone: [phone] Blood platelet mean volumeon 01-20-2022 Platelet mean volume (Bld) [Entitic vol] 8.8 fL 6.2-12.0 [facility] [place] Work Phone: [phone] Determination of erythrocyte mean corpuscular volume (MCV)on 01-20-2022 MCV (RBC) [Entitic vol] 98.1 fL 81-99 [facility] Work Phone: [phone] Hematocrit Auto (Bld) [Volum e fraction]on 01-20-2022 Hematocrit (Bld) [Volume fraction] 41.0 % 37-47 [facility] [place] Work Phone: [phone] Iron measurement (mass/mass) on 01-20-2022 Iron (Unsp spec) [Mass/Mass] 56 ug/dL 50-170 [facility] [place] Work Phone: Laboratory - Chemistry and C hemistry - challengeon 01-20-2022 ALP [Catalytic activity/Vol] 50 U/L 45-117 [facility] [place] Work Phone: [phone] ALT [Catalytic activity/Vol] 18 U/L 13-56 [facility] [place] Work Phone: [phone] CO2 [Moles/Vol] 27.0 mmol/L 21.0-32.0 [facility] [place] Work Phone: [phone] Cobalamin (Vitamin B12) [Mass/Vol] 542 pg/mL 211-911 [facility] [place] Work Phone: [phone] Globulin (S) [Mass/Vol] 3.6 g/dL 2.2-4.2 [facility] Work Phone: [phone] Urea nitrogen/Creatinine [Mass ratio] 22.0 mg/mg 10-20 [facility] [place] Work Phone: [phone] Laboratory - Hematology and Cell countson 01-20-2022 Erythrocyte distribution width (RBC) [Entitic vol] 54.1 fL 35.1-43.9 [facility] [place] Work Phone: [phone] Erythrocyte distribution width (RBC) [Ratio] 15.0 % 11.6-14.6 [facility] [place] Work Phone: [phone] MCH (RBC) [Entitic mass] 32.3 pg 27.0-32.0 [facility] [place] Work Phone: [phone] MCHC Auto (RBC) [Mass/Vol]on 01-20-2022 MCHC (RBC) [Mass/Vol] 32.9 g/dL 32-36 [facility] Work Phone: No Panel Informationon 01-20 Total Iron Binding Capacity 308 ug/dL 250-450 [facility] [place] Work Phone: [phone] Estimated GFR (MDRD) Amer 101 mL/min >60 [facility] [place] Work Phone: [phone] Comment on above: GFR Calc Estimated GFR (MDRD) Non-Af Amer 83 mL/min >60 [facility] [place] Work Phone: [phone] Comment on above: Non- GFR Calc Thyroid Stimulating Hormone (TSH) 1.56 uIU/mL 0.358-3.74 [facility] [place] Work Phone: [phone] Vitamin D 25-Hydroxy 38.0 ng/mL [facility] Work Phone: Comment on above: Vitamin D 25(OH) Sta tus Range Deficiency <20 ng/mL (50nmol/L) Insufficiency 20 - 30 ng/mL (50 - 75 nmol/L) Sufficiency 30 - 100 ng/mL (75 - 250 nmol/L) Toxicity >100 ng/mL (>250 nmol/L) Platelets bldon 01-20-2022 Platelets (Bld) [#/Vol] 349 10*3/uL 150-450 [facility] [place] Work Phone: [phone] Serum or plasma albumin soila urement (mass/volume)on 01-20-2022 Albumin [Mass/Vol] 3.7 g/dL 3.2-5.0 [facility] Work Phone: [phone] Serum or plasma albumin/glob ulin mass ratioon 01-20-2022 Albumin/Globulin [Mass ratio] 1.0 {ratio} 0.9-2.4 [facility] [place] Work Phone: [phone] Serum or plasma calcium soila urement (mass/volume)on 01-20-2022 Calcium [Mass/Vol] 9.3 mg/dL 8.5-10.1 [facility] Work Phone: [phone] Serum or plasma creatinine m easurement (mass/volume)on 01-20-2022 Creatinine [Mass/Vol] 0.82 mg/dL 0.55-1.02 [facility] Work Phone: Comment on above: The validity of the calculated GFR & GFRAA in patients over 70 years has not been determined. Clinical correlation is essential. Serum or plasma ferritin markus surement (mass/volume)on 01-20-2022 Ferritin [Mass/Vol] 56 ng/mL 8-252 [facility] Work Phone: [phone] Serum or plasma iron saturat ion measurement (mass fraction)on 01-20-2022 Iron saturation [Mass fraction] 18.2 % 15.0-55.0 [facility] [place] Work Phone: Serum or plasma urea nitroge n measurement (mass/volume)on 01-20-2022 Urea nitrogen [Mass/Vol] 18 mg/dL 7-18 [facility] [place] Work Phone: Thin prep Papanicolaou smear with manual screeningon 01-20-2022 Thin prep Papanicolaou smear with manual screening 11 U/L 15-37 [facility] [place] Work Phone: Thin prep Papanicolaou smear with manual screening 7 5-15 [facility] [place] Work Phone: Laboratory - Microbiology an d Antimicrobial susceptibilityon 06-11-2021 SARS-CoV-2 (COVID-19) RNA ERICK+probe Ql (Unsp spec) Not detected Not Detect [facility] [place] Work Phone: Comment on above: Normal Reference Ran ge: Not DetectedMethod:(RT-PCR) real-time reverse transcriptase PCRLuminex TRINA Instrument*The Food and Drug Administration (FDA) has issued an Emergency Use Authorization (EAU) for the TRINA SARS-CoV-2 Assay for the rapid detection of the virus that causes COVID-19. This test has been validated, but the FDAs independent review of this validation is pending.*Negative results do not preclude infection and should not be used as the sole basis for treatment or patient management. Optimum specimen types and timing for peak viral levels during infections caused by SARS-CoV-2 have not been determined. Collection of multiple specimens from the same patient may be necessary to detect the virus. The possibility of a false negative result should be considered if the patient has clinical presentation or has had recent exposure. Replaced Document: (P) AT II I Func / Immunolon 09-01-2016 Antithrombin III Antigen 75 % Invalid Interpretation Code 72-124 [facility] Work Phone: [phone] antithrombin, functional 91 % Invalid Interpretation Code 75-135 [facility] Work Phone: [phone] Replaced Document: (P) Antic ardiolipin IgG, IgMon 09-01-2016 cardiolipin antibody, IgG < 9 Invalid Interpretation Code 0-14 [facility] Work Phone: [phone] cardiolipin antibody, IgM < 9 Invalid Interpretation Code 0-12 [facility] Work Phone: [phone] Replaced Document: (P) Beta- 2 Glycoprot IgG, A, 09-01-2016 beta II glycoprotein I ( IgG) <9 Invalid Interpretation Code 0-20 [facility] Work Phone: [phone] beta II glycoprotein I ( IgM) <9 Invalid Interpretation Code 0-32 [facility] Work Phone: [phone] beta II glycoprotein I (IgA) <9 Invalid Interpretation Code 0-25 [facility] Work Phone: [phone] Replaced Document: (P) Fact V Leiden Mutationon 09-01-2016 factor V Leiden, DNA testing by PCR, whole blood Comment Invalid Interpretation Code . [facility] Work Phone: [phone] Replaced Document: (P) Facto r II, DNA Analysison 09-01-2016 GE use only - for [employer] import when terms are not otherwise specified Comment Invalid Interpretation Code . [facility] Work Phone: [phone] prothrombin [address] mutation, DNA testing by PCR, whole blood Comment Invalid Interpretation Code . [facility] Work Phone: [phone] Replaced Document: (P) Prote in C Defic. Profileon 09-01-2016 protein C antigen, plasma 89 % Invalid Interpretation Code 60-150 [facility] Work Phone: [phone] Replaced Document: (P) Prote in C, Functionalon 09-01-2016 Protein C, Functional 116 % Invalid Interpretation Code 73-180 [facility] Work Phone: [phone] Vital Signs Date Time Vital Sign Value Performing Clinician Facility 12-02-2024 09:23-0400 Body height 163.8 cm Pedro Gilbert MD Work Phone: [facility] 12-02-2024 09:23-0400 Body mass index (BMI) [Ratio] 31.1 kg/m2 Pedro Gilbert MD Work Phone: [facility] 12-02-2024 09:23-0400 Body weight 83.46 kg Pedro Gilbert MD Work Phone: [facility] 12-02-2024 09:23-0400 Diastolic blood pressure 78 mm[Hg] Pedro Gilbert MD Work Phone: [facility] 12-02-2024 09:23-0400 Systolic blood pressure 122 mm[Hg] Pedro Gilbert MD Work Phone: [facility] 11-29-2023 08:15-0400 Body height 163.4 cm Pedro Gilbert MD Work Phone: [facility] 11-29-2023 08:15-0400 Body mass index (BMI) [Ratio] 29.56 kg/m2 Pedro Gilbert MD Work Phone: [facility] 11-29-2023 08:15-0400 Body weight 78.93 kg Pedro Gilbert MD Work Phone: [facility] 11-29-2023 08:15-0400 Diastolic blood pressure 72 mm[Hg] Pedro Gilbert MD Work Phone: [facility] 11-29-2023 08:15-0400 Systolic blood pressure 120 mm[Hg] Pedro Gilbert MD Work Phone: [facility] 06-13-2022 08:11-0400 Body temperature 97.81 [degF] Loree Praisler-Wood VACCINE CUSTOMER REPRESENTATIVE.KICKING MACHINE OPERATOR Work Phone: [facility] 06-13-2022 08:11-0400 Body weight 77.11 kg Loree Praisler-Wood VACCINE CUSTOMER REPRESENTATIVE.KICKING MACHINE OPERATOR Work Phone: [facility] 06-13-2022 08:11-0400 Diastolic blood pressure 68 mm[Hg] Loree Praisler-Wood VACCINE CUSTOMER REPRESENTATIVE.KICKING MACHINE OPERATOR Work Phone: [facility] 06-13-2022 08:11-0400 Heart rate 68 /min Loree Praisler-Wood VACCINE CUSTOMER REPRESENTATIVE.KICKING MACHINE OPERATOR Work Phone: [facility] 06-13-2022 08:11-0400 Respiratory rate 16 /min Loree Praisler-Wood VACCINE CUSTOMER REPRESENTATIVE.KICKING MACHINE OPERATOR Work Phone: [facility] 06-13-2022 08:11-0400 SaO2% (BldA) [Mass fraction] 100 % Loreenydia Steiner APRN.KICKING MACHINE OPERATOR Work Phone: [facility] 06-13-2022 08:11-0400 Systolic blood pressure 124 mm[Hg] Loree Steiner APRN.KICKING MACHINE OPERATOR Work Phone: [facility] 11-05-2021 14:41-0400 Body height 165.[address] Chula Lind Work Phone: [facility] Work Phone: 11-05-2021 14:41-0400 Body mass index (BMI) [Ratio] 32.1 kg/m2 Dr. Chula Lind Work Phone: [facility] Work Phone: 11-05-2021 14:41-0400 Body temperature 98 [degF] Dr. Chula Lind Work Phone: [facility] Work Phone: 11-05-2021 14:41-0400 Body weight 87.[address] Chula Lind Work Phone: [facility] Work Phone: 11-05-2021 14:41-0400 Diastolic blood pressure 82 mm[Hg] Dr. Chula Lind Work Phone: [facility] Work Phone: 11-05-2021 14:41-0400 Heart rate 61 /min Dr. Chula Lind Work Phone: [facility] Work Phone: 11-05-2021 14:41-0400 Respiratory rate 16 /min Dr. Chula Lind Work Phone: [facility] Work Phone: 11-05-2021 14:41-0400 SaO2% (BldA) [Mass fraction] 98 % Dr. Chula Lind Work Phone: [facility] Work Phone: 11-05-2021 14:41-0400 Systolic blood pressure 128 mm[Hg] Dr. Chula Lind Work Phone: [facility] Work Phone: Encounters Encounter Date Encounter Type Care Provider Facility Start: 12-28-2024 Encounter for genera l adult medical examination without abnormal findings Toño Herrera [facility] Start: 12-17-2024 End: 12-17-2024 ambulatory Madison Tom WILDLIFE ECOLOGIST-C Work Phone: [facility] [place] Start: 12-17-2024 End: 12-17-2024 Patient encounter procedure Toño Herrera WILDLIFE ECOLOGIST-C -[facility] [place] Work Phone: Start: 12-17-2024 End: 12-17-2024 ambulatory Toño Herrera [facility] Facility:[facility] Start: 12-05-2024 ambulatory PEDRO GILBERT Facilit y:[facility] Start: 12-02-2024 End: 12-02-2024 Patient encounter procedure Pedro Gilbert MD Work Phone: OB/Gynecology Comment on above: Encounter for gyneco logical examination (general) (routine) without abnormal findings (Primary Dx); Encounter for screening mammogram for breast cancer Start: 12-02-2024 End: 12-02-2024 Patient encounter status Pedro Gilbert MD Work Phone: [facility] Start: 12-02-2024 End: 12-02-2024 ambulatory PEDRO GILBERT Facility:[facility] Start: 12-02-2024 Encounter for gynecological examination (general) (routine) without abnormal findings PEDRO GILBERT [facility] Start: 02-07-2024 End: 02-07-2024 ambulatory PEDRO GILBERT Facility:[facility] Start: 02-07-2024 End: 02-07-2024 Subsequent hospital visit by physician Pedro Gilbert MD Work Phone: Mammogram Comment on above: Encounter for screen ing mammogram for breast cancer [Z12.31] Start: 11-29-2023 End: 11-29-2023 Patient encounter procedure Pedro Gilbert MD Work Phone: OB/Gynecology Comment on above: Encounter for gyneco logical examination (general) (routine) without abnormal findings (Primary Dx); Screening for cervical cancer; Encounter for screening for human papillomavirus (HPV); Encounter for screening mammogram for breast cancer Start: 11-29-2023 End: 11-29-2023 Patient encounter status Pedro Gilbert MD Work Phone: [facility] Start: 06-13-2022 End: 06-13-2022 Patient encounter procedure Loree Steiner APRN.[facility] Work Phone: [facility] Comment on above: Urinary frequency (P rimary Dx) Start: 05-05-2022 End: 05-06-2022 ambulatory TY WILLIAMSON MD [facility] Facility:[facility] Start: 01-20-2022 End: 01-20-[address] Chula Lind Work Phone: [facility] Work Phone: Start: 01-20-2022 End: 01-20-[address] Chula Lind Work Phone: [facility] Start: 11-05-2021 End: 11-05-[address] Chula Lind Work Phone: [facility] Start: 06-11-2021 End: 06-11-2021 Patient encounter procedure [facility]-Laboratory, Specimen Procedures Date Procedure Procedure Detail Performing Clinician Start: 06-13-2022 Urnls dip stick/tabl et rgnt auto w/o microscopy Joyce Graff PA-C Work Phone: Plan of Treatment Date Care Activity Detail Author Start: 11-28-2028 Screening for malign ant neoplasm of cervix Cervical Cancer Screening [facility] Start: 12-03-2025 End: 12-03-2025 Patient encounter procedure 12/03/2025 8:50 AM EDT Office Visit OB/Gynecology [address] [place] [address] Pedro Gilbert MD [address] [place] [address] annual OB/Gynecology Comment on above: annual Start: 09-27-2025 Urine microalbumin profile [facility] Start: 02-06-2025 Screening for malign ant neoplasm of breast Mammogram Screening [facility] Start: 12-05-2024 End: 12-05-2024 Patient encounter procedure 12/05/2024 12:50 PM EDT Appointment Mammogram [address] [place] [address] Mammogram Start: 12-02-2024 End: 12-02-2024 Patient encounter procedure 12/02/2024 9:10 AM EDT Office Visit OB/Gynecology [address] [place] [address] Pedro Gilbert MD [address] [place], [place] [id number] Annual OB/Gynecology Comment on above: Annual Start: 11-18-2024 Influenza vaccination Influenza Vacc ine (#1) [facility] Start: 12-08-2023 End: 12-08-2023 Patient encounter procedure 12/08/2023 7:50 AM EDT Appointment Mammogram [address] [place] [address] Encounter for screening mammogram for breast cancer [Z12.31] Mammogram Comment on above: Encounter for screen ing mammogram for breast cancer [Z12.31] Start: 2023 Screening for malign ant neoplasm of breast Mammogram Screening [facility] Start: 11-19-2023 Covid-19 Vaccine ( season) Covid-19 Vaccine () [facility] Start: 11-19-2023 Covid-19 Vaccine (1 - 2024-25 season) Covid-19 Vaccine ( season) [facility] Start: 11-19-2023 Influenza vaccination Influenza Vacc ine (#1) [facility] Start: 06-20-2023 PAP TESTING PAP TESTING [facility] Start: 03-20-2022 DEPRESSION ASSESSMENT DEPRESSION ASS ESSMENT [facility] Start: 11-18-2021 Influenza vaccination INFLUENZA (#1) [facility] Start: 06-19-2021 Screening for malign ant neoplasm of cervix Cervical Cancer Screening [facility] Start: 11-21-2013 HPV TESTING HPV TESTING [facility] Start: 11-21-2010 HPV Vaccine (1 - 3-d ose SCDM series) HPV Vaccine (1 - 3-dose SCDM series) [facility] Start: 11-21-2001 Anxiety Screening Anxiety Screening [facility] Start: 11-21-2001 Depression Screening Depression Scre ening [facility] Start: 11-21-2001 HIV SCREENING HIV SCREENING [facility] Start: 11-21-2001 HIV screening HIV Screening [facility] Start: 05-21-1984 COVID-19 VACCINE (#1) COVID-19 VACCI NE (#1) [facility] Bacteria identified in Urine by Culture URINE CULTURE Microbiology Routine Urinary frequency Ordered: 06/13/2022 [facility] Work Phone: Comment on above: Ordered: 06/13/2022 End: 12-28-2024 DBT Breast - bilateral screening [facility]Y SCREENING [facility] Radiology Routine Encounter for screening mammogram for breast cancer 1 Occurrences starting 11/29/2023 until 12/28/2024 [facility] Work Phone: Comment on above: 1 Occurrences starti ng 11/29/2023 until 12/28/2024 DBT Breast - bilater al screening SURY SCREENING [facility] Radiology Routine Encounter for screening mammogram for breast cancer 02/07/2024 11:29 AM EST [facility] Work Phone: End: 01-01-2026 DBT Breast - bilateral screening SURY SCREENING [facility] Radiology Routine Encounter for screening mammogram for breast cancer 1 Occurrences starting 12/02/2024 until 01/01/2026 [facility] Work Phone: Comment on above: 1 Occurrences starti ng 12/02/2024 until 01/01/2026 PAP TEST PAP TEST Lab [facility] Encounter for gynecological examination (general) (routine) without abnormal findings Screening for cervical cancer Encounter for screening for human papillomavirus (HPV) 11/29/2023 9:21 AM EDT [facility] Work Phone: Immunizations Immunization Date Immunization Notes Care Provider Bobby benavides 01-22-2018 influenza, injectabl e, quadrivalent, contains preservative Loree Steiner APRN.KICKING MACHINE OPERATOR Work Phone: [facility] 01-22-2018 influenza, injectabl e, quadrivalent, preservative free Madison Tom WILDLIFE ECOLOGIST-C Work Phone: [facility] 01-22-2018 influenza, seasonal, injectable [facility] Work Phone: 01-22-2018 influenza virus vaccine, unspecified formulation Pedro Gilbert MD Work Phone: [facility] 01-23-2017 influenza, injectabl e, quadrivalent, preservative free Madison Tom WILDLIFE ECOLOGIST-C Work Phone: [facility] 01-23-2017 influenza, seasonal, injectable [facility] Work Phone: 02-08-2016 influenza, injectabl e, quadrivalent, preservative free Madison Tom WILDLIFE ECOLOGIST-C Work Phone: [facility] 02-08-2016 influenza, seasonal, injectable [facility] Work Phone: 09-28-2015 tetanus toxoid, redu kat diphtheria toxoid, and acellular pertussis vaccine, adsorbed Loree Steiner VACCINE CUSTOMER REPRESENTATIVE.KICKING MACHINE OPERATOR Work Phone: [facility] 03-02-2015 influenza, injectabl e, quadrivalent, preservative free Madison Tom WILDLIFE ECOLOGIST-C Work Phone: [facility] 03-02-2015 influenza, seasonal, injectable [facility] Work Phone: 02-06-2014 influenza, injectabl e, quadrivalent, preservative free Madison Tom WILDLIFE ECOLOGIST-C Work Phone: [facility] 02-06-2014 influenza, seasonal, injectable [facility] Work Phone: 04-22-2010 tetanus toxoid, redu kat diphtheria toxoid, and acellular pertussis vaccine, adsorbed Loree Steiner APRN.[facility] Work Phone: [facility] 08-09-2005 hepatitis B vaccine, pediatric or pediatric/adolescent dosage Loree Steiner APRN.[facility] Work Phone: [facility] Work Phone: 08-11-2004 hepatitis B vaccine, pediatric or pediatric/adolescent dosage Loree Steiner APRN.[facility] Work Phone: [facility] Work Phone: 05-04-2000 tetanus and diphther ia toxoids, adsorbed, preservative free, for adult use (2 Lf of tetanus toxoid and 2 Lf of diphtheria toxoid) Loree Steiner APRN.[facility] Work Phone: [facility] Work Phone: 08-01-1996 hepatitis B vaccine, pediatric or pediatric/adolescent dosage Loree Steiner APRN.[facility] Work Phone: [facility] Work Phone: 08-01-1996 measles, mumps and rubella virus vaccine Loree Steiner APRN.[facility] Work Phone: [facility] Work Phone: 03-20-1992 chicken pox (disease) Loree Steiner APRN.KICKING MACHINE OPERATOR Work Phone: [facility] Work Phone: 12-01-1988 diphtheria, tetanus toxoids and pertussis vaccine Loree Steiner APRN.[facility] Work Phone: [facility] Work Phone: 12-01-1988 trivalent poliovirus vaccine, live, oral Loree Steiner APRN.[facility] Work Phone: [facility] Work Phone: 1985 haemophilus influenz ae type b vaccine, PRP-D conjugate Loree Praisler-Wood VACCINE CUSTOMER REPRESENTATIVE.[facility] Work Phone: [facility] Work Phone: 10-22-1985 diphtheria, tetanus toxoids and pertussis vaccine Loree Praisler-Wood VACCINE CUSTOMER REPRESENTATIVE.[facility] Work Phone: [facility] Work Phone: 10-22-1985 trivalent poliovirus vaccine, live, oral Loree Praisler-Wood VACCINE CUSTOMER REPRESENTATIVE.[facility] Work Phone: [facility] Work Phone: 03-21-1985 measles, mumps and rubella virus vaccine Loree Praisler-Wood VACCINE CUSTOMER REPRESENTATIVE.[facility] Work Phone: [facility] Work Phone: 11-26-1984 tuberculin skin test ; purified protein derivative solution, intradermal Pedro Gilbert MD Work Phone: [facility] 05-30-1984 diphtheria, tetanus toxoids and pertussis vaccine Loree Praisler-Wood VACCINE CUSTOMER REPRESENTATIVE.[facility] Work Phone: [facility] Work Phone: 03-26-1984 diphtheria, tetanus toxoids and pertussis vaccine Loree Praisler-Wood VACCINE CUSTOMER REPRESENTATIVE.[facility] Work Phone: [facility] Work Phone: 03-26-1984 trivalent poliovirus vaccine, live, oral Loree Praisler-Wood VACCINE CUSTOMER REPRESENTATIVE.[facility] Work Phone: [facility] Work Phone: 01-25-1984 diphtheria, tetanus toxoids and pertussis vaccine Loree Praisler-Wood VACCINE CUSTOMER REPRESENTATIVE.[facility] Work Phone: [facility] Work Phone: 01-25-1984 trivalent poliovirus vaccine, live, oral Loree Praisler-Wood VACCINE CUSTOMER REPRESENTATIVE.[facility] Work Phone: [facility] Work Phone: Payers Date Payer Category Payer Self-pay [id number] 2022 [employer] PPO [id number] 2022 Unknown [employer] PPO [id number] 2022-Present [phone] [place] [address] PPO [id number] 2022 Unknown [id number] 2015 Unknown [facility] [id number] 1983 Unknown [id number] Unknown [id number] Social History Date Type Detail Facility Tobacco smoking stat us NHIS Unknown if ever smoked [facility] Work Phone: Start: 1985 Sex Assigned At Female [facility] Start: 12-02-2020 End: 11-05-2021 Tobacco smoking status NHIS Unknown if ever smoked [facility] Work Phone: Start: 04-22-2010 End: 05-20-2022 Tobacco smoking status NHIS Never smoked tobacco [facility] Start: 04-22-2010 Tobacco use and exposure Smokeless tobacco non-user [facility] Start: 06-13-2022 End: 12-02-2024 Alcohol intake Current drinker of alcohol (finding) [facility] Start: 06-13-2022 End: 11-29-2023 Alcohol intake [facility] Start: 1985 Sex Assigned At Not on file [facility] Start: 01-23-2018 End: 11-29-2023 Tobacco use panel [facility] Start: 02-19-2012 Adult Depression Screening Assessment 0 [facility] Start: 08-25-2016 Alcohol Alcohol [facility] Start: 08-25-2016 Drugs Drugs [facility] Start: 08-25-2016 Lives Lives [facility] Start: 08-25-2016 Tobacco Use Tobacco Use [facility] Functional Status Date Assessment Result Facility 09-20-2014 Are you deaf, or do you have serious difficulty hearing No 09/20/2014 11:45 AM Iris Correa LPN No [facility] 09-20-2014 Are you blind, or do you have serious difficulty seeing, even when wearing glasses No 09/20/2014 11:45 AM Iris Correa LPN No [facility] 09-20-2014 Do you have serious difficulty walking or climbing stairs No 09/20/2014 11:45 AM Iris Correa LPN No [facility] 09-20-2014 Do you have difficul ty dressing or bathing No 09/20/2014 11:45 AM Iris Correa LPN No [facility] 09-20-2014 Because of a physica l, mental, or emotional condition, do you have difficulty doing errands alone such as visiting a physician's office or shopping No 09/20/2014 11:45 AM Iris Correa LPN [facility] Mental Status Date Assessment Result Facility 09-20-2014 Because of a physica l, mental, or emotional condition, do you have serious difficulty concentrating, remembering, or making decisions No 09/20/2014 11:45 AM Iris Correa LPN No [facility] Clinical Notes 06-13-2022 to 12-05-2024 Pedro Gilbert MD - 12/02/2024 9:18 AM Caleb Kulkarni Mammo Tech - 02/07/2024 11:10 AM Pedro Umanzor MD - 11/29/2023 8:06 AM EDTPatient Instructions Note Date & Type Note Facility 12-05-2024 Note HNO ID: [id number] Author: LELA MIRELES RT(R) Service: ? Author Type: Technologist Type: Progress Notes Filed: 12/05/2024 13:17 Note Text: Radiology Service Progress Note PATIENT NAME: Deepthi Phoenix DATE OF SERVICE: December 05, 2024 [...] PATIENT PRESENTS WITH AN IMPLANTABLE OR ATTACHED ROAD MENDER: No RADIOLOGY DEPARTMENT: Mammography PERIPHERAL IV DATA: Not applicable SIGNED BY: RT Alisia(R) December 05, 2024 1:17 PM [facility] 12-02-2024 Note HNO ID: [id number] Author: PEDRO GILBERT MD Service: ? Author Type: Physician Type: Progress Notes Filed: 12/02/2024 10:35 Note Text: Power Hammer Operator offered: Patient accepts, visit chaperoned by Yamilet Arreaga. Deepthi is a 39 year old who presents [...] Living0 SAB0 IAB0 Ectopic0 Multiple0 Live Births0 Assistant Surveyor History LMP: 11/19/2024, Having periods Age at Menarche: 12 Age at First : Age at Menopause: Assistant Surveyor History Comments: Sexual Activity: Yes; Male Contraception: [...] due to assymetry PAST SURGICAL HISTORY OF [place] tooth extraction x 4 FAMILY HISTORY Problem [...] discussed with the Patient or Patient's Authorized Cargo Trimmer. As applicable, any other physician, advance practice provider, medical student, or other health professional student that will be observing or involved in the sensitive examination for educational or training purposes was discussed with the Patient or Authorized Cargo Trimmer. The Patient or Authorized Cargo Trimmer has agreed to proceed with the sensitive [...] external genitalia normal, normal Bartholin's glands, urethra, Woodbine's glands, no vulvar lesions, no cervical lesions, [...] or sooner as needed Pedro Gilbert MD [facility] 12-02-2024 History of Presen t illness Narrative Power Hammer Operator offered: Patient accepts, visit chaperoned by Yamilet Arreaga. Deepthi is a 39 year old who presents [...] Living0 SAB0 IAB0 Ectopic0 Multiple0 Live Births0 Assistant Surveyor History LMP: 11/19/2024, Having periods Age at Menarche: 12 Age at First : Age at Menopause: Assistant Surveyor History Comments: Sexual Activity: Yes; Male Contraception: [...] due to assymetry PAST SURGICAL HISTORY OF [place] tooth extraction x 4 FAMILY HISTORY Problem [...] discussed with the Patient or Patient's Authorized Cargo Trimmer. As applicable, any other physician, advance practice provider, medical student, or other health professional student that will be observing or involved in the sensitive examination for educational or training purposes was discussed with the Patient or Authorized Cargo Trimmer. The Patient or Authorized Cargo Trimmer has agreed to proceed with the sensitive [...] external genitalia normal, normal Bartholin's glands, urethra, Woodbine's glands, no vulvar lesions, no cervical lesions, [...] or sooner as needed Pedro Gilbert MD documented in this encounter [facility] 02-07-2024 History of Presen t illness Narrative Radiology Service Progress Note PATIENT NAME: Deepthi Phoenix DATE OF SERVICE: February 07, 2024 [...] PATIENT PRESENTS WITH AN IMPLANTABLE OR ATTACHED ROAD MENDER: No RADIOLOGY DEPARTMENT: Mammography PERIPHERAL IV DATA: Not applicable SIGNED BY: Ankit Lizama February 07, 2024 12:55 PM documented in this encounter [facility] 02-07-2024 Note HNO ID: [id number] Author: CALEB ADLEY Mammo Tech Service: ? Author Type: Software Writer Type: Progress Notes Filed: 02/07/2024 12:55 Note Text: Radiology Service Progress Note PATIENT NAME: Deepthi Phoenix DATE OF SERVICE: February 07, 2024 [...] PATIENT PRESENTS WITH AN IMPLANTABLE OR ATTACHED ROAD MENDER: No RADIOLOGY DEPARTMENT: Mammography PERIPHERAL IV DATA: Not applicable SIGNED BY: Caleb Daley Shepherd Intelligent Systemso Tech February 07, 2024 12:55 PM [facility] 11-29-2023 History of Presen t illness Narrative Power Hammer Operator offered: Patient accepts, visit chaperoned by Mirta Cervantes MA. Deepthi is a 38 year old who presents for an annual gynecologic exam and recently had an ultrasound identifying a left hemorrhagic ovarian cyst.. Menses: scant on Mirena. Contraception: IUD 2021 HPV vaccine: No Last Pap: normal HPV: negative History of abnormal pap: No Last mammogram: never Sexually active: Yes History of ovarian cyst: No Pain with intercourse: No Seatbelt use: Yes OB History No obstetric history on file. Assistant Surveyor History LMP: 11/07/2023 (Exact Date), Having periods Age at Menarche: Age at First : Age at Menopause: Assistant Surveyor History Comments: Sexual Activity: Yes; Male Contraception: I.U.D. PAST MEDICAL HISTORY 08/24/2016: Paresthesia No date: Scoliosis (and kyphoscoliosis), idiopathic 08/24/2016: Vision disturbance Comment: Echo, MRI r/o CVAPAST SURGICAL HISTORY No date: PAST SURGICAL HISTORY OF Comment: Spinal fusion with rods for Scoliosis No date: PAST SURGICAL HISTORY OF Comment: Right breast implant due to assymetry No date: PAST SURGICAL HISTORY OF Comment: [place] tooth extraction x 4 FAMILY HISTORY Problem [...] skin retraction. Allergies and current medication updated:Yes EXAM: BP 120/72 Ht 5' 4.331 (1.63m) Wt 174 lb (78.9kg) LMP 11/07/2023 BMI 29.56 kg/(m^2). GENERAL: pleasant, female in no apparent distress HEENT: Normocephalic, atraumatic, mucus membranes moist, and no lesions NECK: Supple, full range of motion, no adenopathy, and thyroid normal DERMATOLOGY: Normal, without lesions, non-icteric, and non-hirsute BREAST: soft, non-tender, symmetric, no dominant mass, normal nipple-areolar complex, no lymphadenopathy, and no nipple discharge. Bilateral breast mplants CHEST: Normal inspiratory effort ABDOMEN: soft, non-tender, and no masses PELVIC: external genitalia normal, normal Bartholin's glands, urethra, Woodbine's glands, no vulvar lesions, no cervical lesions, good vaginal support, physiologic discharge present, normal appearing perineal body and perianal region, IUD strings visible BIMANUAL: uterus normal size, shape and consistency, anteverted, no adnexal masses, non-tender, and Mild tenderness left adnexa RECTOVAGINAL: rectovaginal exam negative for any masses or nodularity. NEURO: alert and oriented x3,exam grossly non-focal EXTREMITIES: normal ASSESSMENT/PLAN: 1) Health maintenance: Pap done with reflex HPV. 2) Contraception: IUD. Contraceptive options reviewed and information provided. 3) STD screening: Declined STD check. 4) Follow up one year or sooner as needed Pedro Gilbert MD documented in this encounter [facility] 06-13-2022 History of Presen t illness Narrative Subjective HPI Deepthi Phoenix is a 36 year old female who presents with 2 days of dysuria and frequency. She denies fever, chills, back pain, abdominal pain, nausea or vomiting. She has not taken any medication at home for fever. LMP: January 2022 (has Mirena) Review of Systems Constitutional: Negative for chills and fever. Respiratory: Negative. Cardiovascular: Negative. Gastrointestinal: Negative for abdominal pain, nausea and vomiting. Genitourinary: Positive for dysuria and frequency. Negative for hematuria. Musculoskeletal: Negative for back pain. BP 124/68 Pulse 68 Temp 36.6 C (97.8 F) Resp 16 Wt 77.1 kg (170 lb) LMP 11/05/2017 (Exact Date) SpO2 100% BMI 29.18 kg/m PAST MEDICAL HISTORY Diagnosis Date Paresthesia 08/24/2016 Scoliosis (and kyphoscoliosis), idiopathic Vision disturbance 08/24/2016 Echo, MRI r/o CVA PAST SURGICAL HISTORY Procedure Laterality Date PAST SURGICAL HISTORY OF Spinal fusion with rods for Scoliosis PAST SURGICAL HISTORY OF Right breast implant due to assymetry PAST SURGICAL HISTORY OF Sayre tooth extraction x 4 ALLERGIES Penicillins MEDICATIONS nitrofurantoin monohydrate and macrocrystal (MACROBID) 100 mg capsule Take 1 capsule by mouth twice daily for 5 days. predniSONE (DELTASONE) 10 mg tablet Take 40 mg x 3 days, 20 mg x 3 days, 10 mg x 3 days. Take with food, once daily (Patient not taking: Reported on 06/13/2022) cyclobenzaprine (FLEXERIL) 10 mg tablet Take 1 tablet by mouth twice daily as needed for Muscle Spasm. (Patient not taking: Reported on 06/13/2022) Norethindrone Acet-Ethinyl Est 1.5-30 mg-mcg Take by mouth as directed. (Patient not taking: Reported on 06/13/2022) FAMILY HISTORY Problem Relation Age of Onset None Mother None Father Diabetes Maternal Grandmother Hypertension Maternal Grandmother Coronary Artery Disease Maternal Grandmother Stroke Maternal Grandmother Coronary Artery Disease Paternal Grandfather Diabetes Paternal Grandfather Hypertension Paternal Grandfather Social History Tobacco Use Smoking status: Never Smokeless tobacco: Never Substance Use Topics Alcohol use: Yes Alcohol/week: 5.0 standard drinks Types: 1 Glasses of Wine (5oz), 1 Cans of Beer (12oz) per week Drug use: No Objective Physical Exam Vitals and nursing note reviewed. Constitutional: General: She is not in acute distress. Appearance: Normal appearance. She is not toxic-appearing. Cardiovascular: Rate and Rhythm: Normal rate and regular rhythm. Heart sounds: Normal heart sounds. Pulmonary: Effort: Pulmonary effort is normal. No respiratory distress. Breath sounds: Normal breath sounds. No wheezing or rales. Abdominal: General: There is no distension. Palpations: Abdomen is soft. There is no mass. Tenderness: There is abdominal tenderness in the suprapubic area. There is no right CVA tenderness, left CVA tenderness or guarding. Skin: General: Skin is warm and dry. Neurological: Mental Status: She is alert. ASSESSMENT/PLAN: 1. Urinary frequency - ICD9: 788.41, ICD10: R35.0 acute - UA positive for enrique esterase, hematuria, and nitrates - Send urine for culture - Begin treatment with Macrobid 100 mg BID for 5 days - Patient education for prevention given - UA DIP, URINE (POC) - URINE CULTURE - NITROFURANTOIN MONOHYDRATE & MACROCRYSTAL 100 MG ORAL CAP - Follow-up with your PCP in 3-5 days if symptoms have not improved or sooner if symptoms worsen - Discussed red flags and need for immediate medical evaluation if any occur. - Discussed supportive care treatment with fluids, rest and analgesia. - Discussed expected course of illness Loree Steiner APRN.MAGALY documented in this encounter [facility] 06-13-2022 Instructions Loree Steiner APRN.CNP - 06/13/2022 8:17 AM EDT ASSESSMENT/PLAN: 1. Urinary frequency - ICD9: 788.41, ICD10: R35.0 acute - UA positive for enrique esterase, hematuria, and nitrates - Send urine for culture - Begin treatment with Macrobid 100 mg BID for 5 days - Patient education for prevention given - UA DIP, URINE (POC) - URINE CULTURE - NITROFURANTOIN MONOHYDRATE & MACROCRYSTAL 100 MG ORAL CAP - Follow-up with your PCP in 3-5 days if symptoms have not improved or sooner if symptoms worsen - Discussed red flags and need for immediate medical evaluation if any occur. - Discussed supportive care treatment with fluids, rest and analgesia. - Discussed expected course of illness Loree Steiner APRN.[facility] PATIENT INFO BLADDER INFECTION OVERVIEW Bladder infections are one of the most common infections, causing symptoms of burning with urination and needing to urinate frequently. A bladder infection is a type of urinary tract infection (UTI). Bladder infections are more common is women than men. Most women have an uncomplicated bladder infection that is easily treated with a short course of antibiotics. In men, bladder infections may also affect the prostate gland, and a longer course of treatment may be needed. BLADDER INFECTION CAUSES The urinary tract includes the kidneys (which filter urine), ureters (the tube that carries urine from the kidneys to the bladder), the bladder (which stores urine), and urethra (the tube that carries urine out of the bladder). Bacteria do not normally live in these areas. However, bacteria normally live close to the urethra in women and men who are not circumcised. Bladder infections occur when bacteria travel up the urethra into the bladder. Factors that increase the risk of developing a bladder infection include: Vaginal sex Use of spermicides History of past bladder infections Diabetes In men, not being circumcised or having anal sex increase the risk of bladder infections. BLADDER INFECTION SYMPTOMS The typical symptoms of a bladder infection include: Pain or burning when urinating Frequent need to urinate Urgent need to urinate Blood in the urine Fever, back pain, nausea, or vomiting are not common symptoms of a bladder infection, but can occur in people with a kidney infection (pyelonephritis). If you have these symptoms, you should call your doctor or nurse immediately. Is it a bladder infection or something else? -- Burning with urination can also occur in people with vaginitis (eg, yeast infection) or urethritis (inflammation of the urethra). For this reason, it is important to call your healthcare provider before assuming you have a bladder infection. BLADDER INFECTION DIAGNOSIS Simple bladder infections are usually diagnosed based upon your symptoms alone. However, most patients, especially those who have bladder infection symptoms for the first time, should see a healthcare provider for urine testing. Urine culture -- A urine culture is a test that uses a sample of urine to try and grow bacteria in a laboratory. It usually requires about 48 hours to get results. However, a urine culture is not always required to diagnose a bladder infection. Urine culture is often recommended if: You have never had a bladder infection before You have symptoms that are not typical for bladder infection You have had resistant bladder infections before You have frequent bladder infections You do not begin to feel better within 24 to 48 hours after starting antibiotics You are BLADDER INFECTION TREATMENT Bladder infection -- In young, healthy adolescents and adults with a bladder infection, the usual treatment includes a three to seven day course of antibiotics. The typical drugs chosen are: trimethoprim-sulfamethoxazole (Bactrim ), nitrofurantoin (Macrobid ), ciprofloxacin (Cipro ) or levofloxacin (Levaquin ). In men, the infection may involve your prostate gland and treatment is usually given for at least 7 days. Your symptoms should begin to resolve within one day after starting treatment. It is important to take the full course of antibiotics to completely eliminate the infection. If your symptoms persist for more than two or three days after starting treatment, call your healthcare provider. If needed, you can take a prescription medication that numbs the bladder and urethra (phenazopyridine [Pyridium ]) to reduce the burning pain of some UTIs. A similar medication is available without a prescription (eg, Uristat). Both medications change the color of the urine (usually blue or orange) and can interfere with laboratory testing. You should not take these medications for more than 48 hours due to the risk of side effects. These medications do not treat the infection and must be taken along with an antibiotic. Some providers recommend drinking more fluids while treating bladder infections to help flush bacteria from the bladder. Others believe that drinking more fluids may dilute the antibiotic in the bladder and make the medication less effective. No studies have been performed to address this issue. There are also no good studies on the effectiveness of cranberry juice for treating a bladder infection; we do not recommend using cranberry juice to treat bladder infections. Follow-up care -- Follow-up testing is not needed in healthy, young men or women with a bladder infection if symptoms resolve. women are usually asked to have a repeat urine culture one to two weeks after treatment has ended to make sure the bacteria are no longer in the urine. RECURRENT BLADDER INFECTIONS Bladder infections versus other causes -- Some adults, especially women, develop bladder infections frequently. In this case, it is important to confirm that your symptoms (eg, pain or burning, frequency, and urgency) are caused by a bladder infection. Symptoms are usually similar from one infection to another. The best way to confirm an infection is to have a urine culture. If your urine culture is negative for infection, other causes of pain, burning, and frequency should be investigated. There is no reason to take antibiotics if your urine culture is negative. Need for further testing -- If you continue to develop bladder infections, you may require further testing. If you continue to notice blood in your urine after your bladder infection has cleared, you should have further testing. Preventing recurrent UTIs -- Women with recurrent urinary tract infections may be advised to take steps to prevent bladder infections, including one or more of the following: Changes in control -- Women who develop frequent bladder infections and use spermicides, particularly those who also use a diaphragm, may be encouraged to use an alternate method of control. Cranberry products -- Taking cranberry juice or cranberry tablets has been promoted as one way to help prevent frequent bladder infections. However, this has not been proven. Drinking more fluid and urinating after intercourse -- Although studies have not proven that drinking more fluids or urinating soon after intercourse can prevent infection, some healthcare providers recommend these measures since they are not harmful. Drinking more fluid may help to wash out bacteria that enter the bladder. Postmenopausal women -- Postmenopausal women who develop recurrent bladder infections may benefit from using vaginal estrogen. Vaginal estrogen is available in a flexible ring that is worn in the vagina for three months (eg, Estring ), a small tablet (Vagifem ), or a cream (eg, Premarin or Estrace ). Vaginal estrogen is discussed in more detail in a separate topic review. Antibiotics -- A preventive antibiotic treatment may be recommended if you repeatedly develop bladder infections and have not responded to other preventive measures. Antibiotics are highly effective in preventing recurrent bladder infections and can be taken in several different ways. Preventive antibiotic -- You can take a low dose of an antibiotic once per day or three times per week for six months to several years. Antibiotics following intercourse -- In women who develop urinary tract infections after sex, taking a single low dose antibiotic after intercourse can help to prevent bladder infections. Self-treatment -- A plan to begin antibiotics at the first sign of a bladder infection may be recommended in some situations. Before starting this regimen, it is important that you have had testing (urine cultures) to confirm that your symptoms are caused by a bladder infection; some people have symptoms of a bladder infection but do not actually have an infection. documented in this encounter [facility] Evaluation note No assessment inform ation available [facility] [place] Work Phone: Evaluation note Diagnosis Onset Date Situational anxiety noneacti ve [facility] [place] Work Phone: Evaluation note* Diagnosis Urinary frequency- Primary [facility] Diagnosis Encounter for gynecological examination (general) (routine) without abnormal findings- Primary Screening for cervical cancer Screening for malignant neoplasm of the cervix Encounter for screening for human papillomavirus (HPV) Special screening examination for human papillomavirus (HPV) Encounter for screening mammogram for breast cancer [facility] Diagnosis Encounter for screening mammogram for breast cancer [facility] Diagnosis Encounter for gynecological examination (general) (routine) without abnormal findings- Primary Encounter for screening mammogram for breast cancer [facility] Diagnostic Procedure Only (Routine) - Authorized Specialty Diagnoses / Procedures Referred By Ashley aeljandre Referred To Contact [facility] Diagnoses Encounter for screening mammogram for breast cancer Procedures SURY SCREENING W GINNA SCREENING DIGITAL BREAST TOMOSYNTHESIS BI SCREENING MAMMOGRAPHY BI 2-VIEW BREAST INC Pedro Tijerina MD [address] [place] [address] [facility] [address] [place] [id number] Referral ID Status Reason Start Date Expiration Date Visits Requested Visits Authorized [id number] Authorized Auto-Generat ed Referral 11/29/2023 12/28/2024 1 1 [facility])No reason for referral information [facility] Work Phone: Reason for visit Narrative* Diagnostic Procedure Only (Routine) - Closed Specialty Diagnoses / Procedures Referred By Ashley alejandre Referred To Contact [facility] Diagnoses Encounter for screening mammogram for breast cancer Procedures SURY SCREENING W GINNA SCREENING DIGITAL BREAST TOMOSYNTHESIS BI SCREENING MAMMOGRAPHY BI 2-VIEW BREAST INC Pedro Tijerina MD [address] [place] [address] [facility] [address] [place] [address] Referral ID Status Reason Start Date Expiration Date V isits Requested Visits Authorized [id number] Closed Auto-Generate d Referral 11/29/2023 12/28/2024 1 1 [facility] Family History Relationship Condition Age at Onset Recorded Date/T ralph Not Specified Cardiac disease Unknown Hypertension Unknown Cerebrovascular accident (CVA) Unknown Advance Directives Advance Directive Response Recorded Date/ Time Living Will No August 25, 2016 1 :16am Power of M60A2 Armor Crewman No August 25, 2016 1:16am Advance Directive Response Recorded Date/ Time Living Will No August 25, 2016 1 2:16am Power of M60A2 Armor Crewman No August 25, 2016 12:16am Advance Directive Response Recorded Date/ Time Advance Directives No February 9:58am Chief Complaint and Reason for Visit Chief Complaint anxiety Reason for Visit Situational anxiety Chief Complaint Admit Date FASTING December 17, 2024 7:49am Summary Purpose Additional Source Comments Goals (unrecognized section and content) Goals may be documented in a n alternate sectionGoals may be documented in an alternate sectionGoals may be documented in an alternate sectionGoals may be documented in an alternate section INFORMATION SOURCE (unrecogn ized section and content) DATE CREATED AUTHOR 05/06/2022 [facility] DATE CREATED AUTHOR AUTHOR'S ORGANIZ ATION 12/08/2024 [facility] DATE CREATED AUTHOR AUTHOR'S ORGANIZ ATION 12/30/2024 [facility] Source Comments (unrecognize d section and content) In the event this informatio n is protected by the Federal Confidentiality of Alcohol and Drug Abuse Patient Records regulations: The Federal rules restrict any use of the information to criminally investigate or prosecute any alcohol or drug abuse patient.[facility] the event this information is protected by the Federal Confidentiality of Alcohol and Drug Abuse Patient Records regulations: The Federal rules restrict any use of the information to criminally investigate or prosecute any alcohol or drug abuse patient.[facility] the event this information is protected by the Federal Confidentiality of Alcohol and Drug Abuse Patient Records regulations: The Federal rules restrict any use of the information to criminally investigate or prosecute any alcohol or drug abuse patient.[facility] the event this information is protected by the Federal Confidentiality of Alcohol and Drug Abuse Patient Records regulations: The Federal rules restrict any use of the information to criminally investigate or prosecute any alcohol or drug abuse patient.[facility] Reason for Visit (unrecogniz ed section and content) Reason Comments Urinary Frequency burning with urinati on x 2 days Reason Comments [facility] Teams (unrecognized sec tion and content) Team Status: Active Member Role/Relationship Status Dates Dr. Chula Lind MD Primary care physician Tash MILES, WILDLIFE ECOLOGIST-C Primary care physician Acti ve Team Status: Inactive Member Role/Relationship Status Dates Madison MILES, WILDLIFE ECOLOGIST-C Primary care physician Acti ve Start: December 17, 2024 End: December 17, 2024 LAUREN Collazo Attending physician Active Start: December 17, 2024 End: December 17, 2024 LAUREN Collazo Referring Provider Active S tart: December 17, 2024 End: December 17, 2024 FOR RECORDS PERTAINING TO PATIENTS WHO ARE OR HAVE BEEN ENROLLED IN A CHEMICAL DEPENDENCY/SUBSTANCEABUSE PROGRAM, SOME INFORMATION MAY BE OMITTED. This clinical summary was aggregated from multiple sources. Caution should be exercised in using it in the provision of clinical care. This summary normalizes information from multiple sources, and as a consequence, information in this document may materially change the coding, format and clinical context of patient data. In addition, data may be omitted in some cases. CLINICAL DECISIONS SHOULD BE BASED ON THE PRIMARY CLINICAL RECORDS. [facility] [employer], [facility]. provides no warranty or guarantee of the accuracy or completeness of information in this document.
== END | disposition home or self-care (01) ==
LOC: US 14:17
PROVIDERS: PCP Nurse Practitioner Family; Referring Provider Nurse Practitioner Family; Visit Provider Nurse Practitioner Family
DX: R10.32 Left lower quadrant pain (principal)
CPT/HCPCS: 76830